=== PATIENT | male | born 1975 | race American Indian/Alaskan Native ===

== ENCOUNTER 2021-07-20 10:21 | Inpatient (IN) | payer SELFPAY ==
[2021-07-20] MEDS: ACETAMINOPHEN 325 MG TAB PO ONE ×2 (11:05→11:08)
--- NOTE | 2021-07-20 11:36 | Event Note ---
ED Screening Note ED Screening Note: Patient presents for dizziness, shortness of breath, cough that began 3 weeks ago Patient states he just took his second Covid vaccine a couple days ago He denies any recent travel or known sick contacts He endorses occasional smoking He denies any past medical history No allergies to medicines This initial assessment/diagnostic orders/clinical plan/treatment(s) is/are subject to change based on patients health status, clinical progression and re- assessment by fellow clinical providers in the ED. Further treatment and workup at subsequent clinical providers discretion. Patient/guardian urged not to elope from the ED as their condition may be serious if not clinically assessed and managed. Initial orders include: Labs, x-ray, EKG
[2021-07-20] MEDS ORDERED: cefTRIAXone/NS 1 GM/50 ML 1 GM/50 ML BAG IV ONE (12:03)
[2021-07-20] MEDS ORDERED: dexAMETHasone 20 MG/5 ML VIAL IV ONE (12:03)
[2021-07-20] MEDS ORDERED: AZITHROMYCIN/NS 500 MG/250 ML 500 MG/250 ML BAG IV ONE (12:03)
--- NOTE | 2021-07-20 12:20 | Emergency Department Report ---
ED Fever HPI - General Chief Complaint: Dyspnea/Respdistress Stated Complaint: DIZZINESS,LIGHT HEADED PUI?: Yes Time Seen by Provider: 07/20/21 11:36 Source: patient Exam Limitations: no limitations - History of Present Illness Initial Comments: Chief complaint:: Shortness of breath dizziness loss of taste smell" HPI: This is a healthy 45-year-old male without significant past medical history presents with 3 to 4 weeks of feeling dizzy, nausea, headaches, fevers or chills, loss of taste or smell. He had a chest ache and cough. Mostly dry cough. On Friday in spite symptoms he obtained his first dose of Covid vaccine on Friday. On he had negative Covid test. 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 denies: fever ENT: denies: throat pain Respiratory: cough, shortness of breath Cardiovascular: chest pain Gastrointestinal: nausea Neurological: headache ED Past Medical Hx - Past Medical History Previous Medical History?: No - Surgical History Past Surgical History?: No - Family History Family history: diabetes, hypertension - Social History Smoking Status: Never Smoker Substance Use Type: None ED Physical Exam - General Limitations: No Limitations General appearance: alert, in no apparent distress, other (Appears mildly ill speaking full sentences skin clammy) - Head Head exam: Present: atraumatic, normocephalic - Eye Eye exam: Present: normal appearance - ENT ENT exam: Present: mucous membranes moist - Neck Neck exam: Present: normal inspection, full ROM - Respiratory Respiratory exam: Present: decreased breath sounds. Absent: respiratory distress, wheezes, rales, rhonchi, chest wall tenderness, accessory muscle use, prolonged expiratory - Cardiovascular Cardiovascular Exam: Present: regular rate, normal rhythm. Absent: systolic murmur, diastolic murmur, rubs, gallop - GI/Abdominal GI/Abdominal exam: Present: soft, normal bowel sounds. Absent: distended, tenderness, guarding, rebound - Rectal Rectal exam: Present: deferred - Extremities Exam Extremities exam: Present: normal inspection - Neurological Exam Neurological exam: Present: alert, oriented X3 - Psychiatric Psychiatric exam: Present: normal affect, normal mood - Skin Skin exam: Present: warm, dry, intact, normal color. Absent: rash ED Course Vital Signs 07/20/21 07/20/21 10:57 13:47 Temperature 102.1 F H 99.1 F Pulse Rate 98 H Respiratory 17 Rate Blood Pressure 129/63 O2 Sat by Pulse 91 Oximetry ED Medical Decision Making - Lab Data Result diagrams: 07/20/21 12:02 07/20/21 12:02 - Radiology Data Radiology results: report reviewed Patient Name: LAURA POLANCO Gender: Male Date of : 1975 Referring Provider: CORNEL FRANKEL Organization: [facility] Accession Number: [id number] Requested Date: July 20, 2021 11:36 Report Status: Final Requested Procedure: 1 Procedure Description: XR chest routine 2V Modality: XR Findings Reporting MD: Rowdy Sepulveda Dictation Time: July 20, 2021 11:24 Kennel Keeper: Not available Digital Community Manager Date: . CHEST 2 VIEWS INDICATION / CLINICAL INFORMATION: SOB, fever, dizziness. COMPARISON: None available. FINDINGS: SUPPORT DEVICES: None. HEART / MEDIASTINUM: No significant abnormality. LUNGS / PLEURA: There are patchy bilateral pulmonary opacities. ADDITIONAL FINDINGS: No significant additional findings. IMPRESSION: 1. Patchy bilateral pulmonary opacities likely indicating multifocal pneumonia. Signer Name: Rowdy Sepulveda MD Signed: 07/20/2021 11:24 AM Workstation Name: [id number] - Medical Decision Making Acute respiratory failure hypoxia due to multifocal pneumonia high suspicion of COVID-19 infection CBC reveals typical lymphopenia with this viral syndrome, Covid markers elevated including ferritin LDH CRP D-dimer Treatment in emergency department included IV ceftriaxone, IV azithromycin, IV dexamethasone. Patient admitted to hospitalist service. He has normal oxygen saturation with nasal cannula. Critical care attestation.: If time is entered above; I have spent that time in minutes in the direct care of this critically ill patient, excluding procedure time. ED Disposition Clinical Impression: Acute respiratory failure with hypoxia, Suspected COVID-19 virus infection, Multifocal pneumonia Disposition: ADMITTED INPATIENT Is pt being admited?: Yes Does the pt Need Aspirin: No Condition: Fair Instructions: Bacterial Pneumonia (ED)
--- NOTE | 2021-07-20 12:28 | XRay Report ---
. CHEST 2 VIEWS INDICATION / CLINICAL INFORMATION: SOB, fever, dizziness. COMPARISON: None available. FINDINGS: SUPPORT DEVICES: None. HEART / MEDIASTINUM: No significant abnormality. LUNGS / PLEURA: There are patchy bilateral pulmonary opacities. ADDITIONAL FINDINGS: No significant additional findings. IMPRESSION: 1. Patchy bilateral pulmonary opacities likely indicating multifocal pneumonia. Signer Name: Rowdy Sepulveda MD Signed: 07/20/2021 12:24 PM Workstation Name: [id number]
[2021-07-20 13:04] LABS: Monocytes # (Auto) 0.5 K/mm3 (0.0-0.8); Monocytes % (Auto) 8.4 % (0.0-7.3)
[2021-07-20 13:11] LABS: Hematocrit 46.6 % (35.5-45.6); Hemoglobin 15.6 gm/dl (11.8-15.2); Mean Corpuscular Volume 82 fl (84-94); Red Blood Count 5.71 M/mm3 (3.65-5.03)
[2021-07-20 13:12] LABS: Basophils % (Auto) 0.2 % (0.0-1.8); Lymphocytes # (Auto) 0.6 K/mm3 (1.2-5.4); Lymphocytes % (Auto) 9.7 % (13.4-35.0); Mean Corpuscular HGB Conc 34 % (32-34); Platelet Count 224 K/mm3 (140-440); Red Cell Distribution Width 14.1 % (13.2-15.2)
[2021-07-20 13:14] LABS: Alanine Aminotransferase 68 units/L (7-56); Albumin 3.5 g/dL (3.9-5); BUN/Creatinine Ratio 17; Blood Urea Nitrogen 20 mg/dL (9-20); Calcium 9.2 mg/dL (8.4-10.2); Hemolysis Index 4
[2021-07-20 13:15] LABS: C-Reactive Protein 13.6 mg/dL (0.00-1.30)
[2021-07-20] MEDS ORDERED: oxyCODONE /ACETAMINOPHEN 5-325MG TAB PO PRN (14:46)
[2021-07-20] MEDS ORDERED: ALBUTEROL 2.5 MG/3 ML NEBU IH PRN (14:46)
[2021-07-20] MEDS ORDERED: HYDROmorphone 1 MG/1 ML INJ IV PRN (14:46)
[2021-07-20] MEDS ORDERED: ACETAMINOPHEN 325 MG TAB PO PRN (14:46)
[2021-07-20] MEDS ORDERED: ONDANSETRON 4 MG/2 ML INJ IV PRN (14:46)
--- NOTE | 2021-07-20 14:46 | History and Physical Report ---
History of Present Illness Chief complaint: I do not feel good History of present illness: 45 YO Male with Obesity presents to ED for evaluation. Patient reports "I do not feel good". Patient states that he has experienced headache, dry cough, generalized weakness, nausea, headache,fever to 102 F, loss of sense of smell, loss of sense of taste, over the past 2 weeks with worsening symptoms over the same timeframe. Patient states that he received his first dose of the coronavirus vaccine on Friday. Patient transported to [facility] via private vehicle for further care and evaluation of the aforementioned symptoms. The patient was found to have a pulse oximetry of 86% with exertion which is consistent with acute hypoxemic respiratory failure. Chest x-ray revealed bilateral pneumonia. Patient admitted to medical floor and initiated on pneumonia protocol as well as coronavirus protocol. Patient denies chest pain, palpitation, skin rash, unilateral leg swelling, calf pain, individual/family history of DVT/ PE/bleeding/blood clotting disorders, recent ill contacts. No prior admission for review. No medication listed at time of admission reconciliation. Past History Past Medical History: other (See HPI) Past Surgical History: No surgical history, Other (Reviewed) Social history: single. denies: smoking, alcohol abuse, prescription drug abuse Family history: diabetes, hypertension Medications and Allergies Allergies Allergy/AdvReac Type Severity Reaction Status Date / Time No Known Allergies Allergy Unverified 07/20/21 10:59 Review of Systems Constitutional: fever, fatigue, weakness, malaise Ears, nose, mouth and throat: other (Loss of sense of smell, loss of sense of taste), no ear pain, no ear discharge, no decreased hearing, no nose pain, no nasal congestion Cardiovascular: no chest pain, no orthopnea, no edema Respiratory: cough, shortness of breath, no excessive sputum Gastrointestinal: no abdominal pain, no nausea, no vomiting, no diarrhea, no hematemesis Genitourinary Male: no discharge, no urinary frequency, no urinary hesitancy Rectal: no pain, no incontinence, no bleeding Musculoskeletal: no neck stiffness, no neck pain, no arm numbness/tingling, no low back pain, no shooting leg pain Integumentary: no rash, no pruritis, no redness, no sores, no jaundice Neurological: no head injury, no paralysis, no parathesias, no seizures, no tremors, no ataxia Psychiatric: no anxiety, no change in sleep habits, no insomnia, no change in appetite, no change in libido, no suicidal ideation Endocrine: no cold intolerance, no heat intolerance, no excessive thirst, no polyuria, no flushing Hematologic/Lymphatic: no easy bruising, no easy bleeding, no lymphadenopathy Allergic/Immunologic: no allergic rhinitis, no anaphylaxis, no angioedema Exam - Constitutional Vitals: Temp Pulse Resp BP Pulse Ox 99.1 F 98 H 17 129/63 91 07/20/21 13:47 07/20/21 10:57 07/20/21 10:57 07/20/21 10:57 07/20/21 10:57 General appearance: Present: mild distress, obese - EENT Eyes: Present: PERRL ENT: hearing intact, clear oral mucosa - Neck Neck: Present: supple, normal ROM - Respiratory Respiratory effort: normal, labored, accessory muscle use Respiratory: bilateral: diminished, rhonchi - Cardiovascular Heart Sounds: Present: S1 & S2. Absent: rub, click - Extremities Extremities: pulses symmetrical, No edema Peripheral Pulses: within normal limits - Abdominal General gastrointestinal: Present: soft, non-tender, non-distended, normal bowel sounds Male genitourinary: Present: normal - Integumentary Integumentary: Present: clear, warm, dry - Musculoskeletal Musculoskeletal: gait normal, strength equal bilaterally - Psychiatric Psychiatric: appropriate mood/affect, intact judgment & insight - Neurologic Neurologic: CNII-XII intact, moves all extremities Results - Labs CBC & Chem 7: 07/20/21 12:02 07/20/21 12:02 Labs: Abnormal lab results 07/20/21 07/20/21 07/20/21 Range/Units 12:02 12:02 12:02 RBC 5.71 H (3.65-5.03) M/mm3 Hgb 15.6 H (11.8-15.2) gm/dl Hct 46.6 H (35.5-45.6) % MCV 82 L (84-94) fl MCH 27 L (28-32) pg Lymph % (Auto) 9.7 L (13.4-35.0) % [place] % (Auto) 8.4 H (0.0-7.3) % Lymph # (Auto) 0.6 L (1.2-5.4) K/mm3 Seg Neutrophils % 81.7 H (40.0-70.0) % D-Dimer 919.54 H (0-234) ng/mlDDU Sodium 130 L (137-145) mmol/L Chloride 92.6 L (98-107) mmol/L Glucose 111 H (75-100) mg/dL Ferritin (30.0-300.0) ng/mL AST 103 H (5-40) units/L ALT 68 H (7-56) units/L Lactate Dehydrogenase (91-180) units/L C-Reactive Protein (0.00-1.30) mg/dL Albumin 3.5 L (3.9-5) g/dL 07/20/21 07/20/21 Range/Units 12:19 12:19 RBC (3.65-5.03) M/mm3 Hgb (11.8-15.2) gm/dl Hct (35.5-45.6) % MCV (84-94) fl MCH (28-32) pg Lymph % (Auto) (13.4-35.0) % [place] % (Auto) (0.0-7.3) % Lymph # (Auto) (1.2-5.4) K/mm3 Seg Neutrophils % (40.0-70.0) % D-Dimer (0-234) ng/mlDDU Sodium (137-145) mmol/L Chloride (98-107) mmol/L Glucose (75-100) mg/dL Ferritin 762.9 H (30.0-300.0) ng/mL AST (5-40) units/L ALT (7-56) units/L Lactate Dehydrogenase 647 H (91-180) units/L C-Reactive Protein 13.60 H (0.00-1.30) mg/dL Albumin (3.9-5) g/dL Assessment and Plan - Patient Problems (1) Acute respiratory failure with hypoxia Current Visit: Yes Status: Acute Plan to address problem: Chest x-ray, supplemental oxygen, pulse oximetry, nebulizer therapy, pulmonary toilet. (2) Obesity hypoventilation syndrome Current Visit: Yes Status: Acute Plan to address problem: Balanced diet, increase physical activity at discharge, outpatient pulmonary follow-up for sleep study. (3) Multifocal pneumonia Current Visit: Yes Status: Acute Plan to address problem: Pneumonia protocol: Chest x-ray, CBC, CMP, supplemental oxygen, pulse oximetry, nebulizer therapy, IV antibiotic therapy, blood culture. (4) Suspected COVID-19 virus infection Current Visit: Yes Status: Acute Plan to address problem: Coronavirus protocol: Contact precautions, isolation precaution, IV antibiotic therapy, steroid therapy, vitamin C therapy, vitamin D therapy, zinc therapy, prophylactic anticoagulation, prone positioning while in bed (5) DVT prophylaxis Current Visit: Yes Status: Acute Plan to address problem: SCDs bilateral lower extremities while in bed, prophylactic anticoagulation
[2021-07-20] MEDS: AZITHROMYCIN/NS 500 MG/250 ML 500 MG/250 ML BAG IV SCH (15:11)
[2021-07-20] MEDS: HEPARIN 5,000 UNIT/1 ML VIAL SUB-Q SCH (22:10)
[2021-07-20] MEDS: methylPREDNISolone Sod Succinate 40 MG/1 ML INJ IV SCH (23:06)
[2021-07-20] MEDS: ASCORBIC ACID 500 MG TAB PO SCH (23:06)
[2021-07-20] MEDS: ZINC SULFATE 220 MG CAP PO SCH (23:06)
[2021-07-21] MEDS ORDERED: cefTRIAXone/NS 2 GM/100 ML 2 GM/100 ML BAG IV SCH (02:00)
[2021-07-21 05:16] LABS: Hematocrit 44.4 % (35.5-45.6); Hemoglobin 14.9 gm/dl (11.8-15.2); Lymphocytes # (Auto) 0.5 K/mm3 (1.2-5.4); Lymphocytes % (Auto) 10.3 % (13.4-35.0); Mean Corpuscular HGB Conc 34 % (32-34); Mean Corpuscular Volume 82 fl (84-94); Monocytes # (Auto) 0.3 K/mm3 (0.0-0.8); Monocytes % (Auto) 6.2 % (0.0-7.3); Platelet Count 240 K/mm3 (140-440); Red Blood Count 5.41 M/mm3 (3.65-5.03); Red Cell Distribution Width 14.2 % (13.2-15.2)
[2021-07-21 05:27] LABS: Alanine Aminotransferase 99 units/L (7-56); Albumin 3.1 g/dL (3.9-5); BUN/Creatinine Ratio 19; Blood Urea Nitrogen 21 mg/dL (9-20); Calcium 8.5 mg/dL (8.4-10.2); Hemolysis Index 1
[2021-07-21] MEDS: methylPREDNISolone Sod Succinate 40 MG/1 ML INJ IV SCH ×3 (06:34→21:54)
[2021-07-21] MEDS: HEPARIN 5,000 UNIT/1 ML VIAL SUB-Q SCH ×2 (10:23→21:53)
[2021-07-21] MEDS: ZINC SULFATE 220 MG CAP PO SCH ×2 (10:24→21:54)
[2021-07-21] MEDS: CHOLECALCIFEROL (VIT D3) 1000 UNIT (25 mcg) TAB PO SCH (10:24)
[2021-07-21] MEDS: ASCORBIC ACID 500 MG TAB PO SCH ×2 (10:24→21:54)
--- NOTE | 2021-07-21 13:16 | Progress Note ---
Assessment and Plan Assessment and plan: (1) Acute respiratory failure with hypoxia Current Visit: Yes Status: Acute Plan to address problem: Chest x-ray, supplemental oxygen, pulse oximetry, nebulizer therapy, pulmonary toilet. (2) Obesity hypoventilation syndrome Current Visit: Yes Status: Acute Plan to address problem: Balanced diet, increase physical activity at discharge, outpatient pulmonary follow-up for sleep study. (3) Multifocal pneumonia Current Visit: Yes Status: Acute Plan to address problem: Pneumonia protocol: Chest x-ray, CBC, CMP, supplemental oxygen, pulse oximetry, nebulizer therapy, IV antibiotic therapy, blood culture. (4) Suspected COVID-19 virus infection Current Visit: Yes Status: Acute Plan to address problem: Coronavirus protocol: Contact precautions, isolation precaution, IV antibiotic therapy, steroid therapy, vitamin C therapy, vitamin D therapy, zinc therapy, prophylactic anticoagulation, prone positioning while in bed (5) DVT prophylaxis Current Visit: Yes Status: Acute Plan to address problem: SCDs bilateral lower extremities while in bed, prophylactic anticoagulation 07/21/21 Patient is 45 yo with cough, shortness of breath. He has bilateral pneumonia, acute resp failure. PUI to r/o Covid. On Rocephin, Azithromycin,solu-medrol History Interval history: Cough Shortness of breath Fever Hospitalist Physical - Physical exam Narrative exam: Gen:Not in acute distress, lying in bed, obese HEENT:Normocephalic, atraumatic Neck:supple, no JVD Lungs: Bilateral crackles, no wheeze Heart:S1 and S2 reg, no murmurs, rubs or gallop Abd:Soft, non tender, non distended, normal bowel sounds Ext:No edema. no clubbing, no cyanosis Neuro:Awake, alert, oriented X 3, moves all extremities - Constitutional Vitals: Temp Pulse Resp BP Pulse Ox 97.9 F 77 18 120/76 94 07/21/21 07:47 07/21/21 10:01 07/21/21 11:24 07/21/21 10:01 07/21/21 10:01 General appearance: Present: mild distress, obese Results - Labs CBC & Chem 7: 07/21/21 03:52 07/21/21 03:52 Labs: Laboratory Last Values WBC 5.0 K/mm3 (4.5-11.0) 07/21/21 03:52 RBC 5.41 M/mm3 (3.65-5.03) H 07/21/21 03:52 Hgb 14.9 gm/dl (11.8-15.2) 07/21/21 03:52 Hct 44.4 % (35.5-45.6) 07/21/21 03:52 MCV 82 fl (84-94) L 07/21/21 03:52 MCH 28 pg (28-32) 07/21/21 03:52 MCHC 34 % (32-34) 07/21/21 03:52 RDW 14.2 % (13.2-15.2) 07/21/21 03:52 Plt Count 240 K/mm3 (140-440) 07/21/21 03:52 Lymph % (Auto) 10.3 % (13.4-35.0) L 07/21/21 03:52 [place] % (Auto) 6.2 % (0.0-7.3) 07/21/21 03:52 Eos % (Auto) 0.0 % (0.0-4.3) 07/21/21 03:52 Baso % (Auto) Transportation Agent 07/21/21 03:52 Lymph # (Auto) 0.5 K/mm3 (1.2-5.4) L 07/21/21 03:52 [place] # (Auto) 0.3 K/mm3 (0.0-0.8) 07/21/21 03:52 Eos # (Auto) 0.0 K/mm3 (0.0-0.4) 07/21/21 03:52 Baso # (Auto) 0.0 K/mm3 (0.0-0.1) 07/21/21 03:52 Seg Neutrophils % 83.2 % (40.0-70.0) H 07/21/21 03:52 Seg Neutrophils # 4.2 K/mm3 (1.8-7.7) 07/21/21 03:52 D-Dimer 919.54 ng/mlDDU (0-234) H 07/20/21 12:02 Sodium 131 mmol/L (137-145) L 07/21/21 03:52 Potassium 4.6 mmol/L (3.6-5.0) 07/21/21 03:52 Chloride 92.7 mmol/L (98-107) L 07/21/21 03:52 Carbon Dioxide 26 mmol/L (22-30) 07/21/21 03:52 Anion Gap 17 mmol/L 07/21/21 03:52 BUN 21 mg/dL (9-20) H 07/21/21 03:52 Creatinine 1.1 mg/dL (0.8-1.3) 07/21/21 03:52 Estimated GFR > 60 ml/min 07/21/21 03:52 BUN/Creatinine Ratio 19 % 07/21/21 03:52 Glucose 142 mg/dL (75-100) H 07/21/21 03:52 Calcium 8.5 mg/dL (8.4-10.2) 07/21/21 03:52 Ferritin 762.9 ng/mL (30.0-300.0) H 07/20/21 12:19 Total Bilirubin 0.40 mg/dL (0.1-1.2) 07/21/21 03:52 AST 130 units/L (5-40) H 07/21/21 03:52 ALT 99 units/L (7-56) H 07/21/21 03:52 Alkaline Phosphatase 61 units/L (35-129) 07/21/21 03:52 Lactate Dehydrogenase 647 units/L (91-180) H 07/20/21 12:19 C-Reactive Protein 13.60 mg/dL (0.00-1.30) H 07/20/21 12:19 Total Protein 7.2 g/dL (6.3-8.2) 07/21/21 03:52 Albumin 3.1 g/dL (3.9-5) L 07/21/21 03:52 Albumin/Globulin Ratio 0.8 % 07/21/21 03:52 Procalcitonin 0.23 ng/mL (<0.15) 07/20/21 12:19 Active Medications - Current Medications Current Medications: Generic Name Dose Route Start Last Admin Trade Name Freq PRN Reason Stop Dose Admin Acetaminophen 650 mg 07/20/21 14:46 Acetaminophen 325 Mg Tab PO Q4H PRN Pain MILD(1-3)/Fever >100.5/LOPEZ Albuterol 2.5 mg 07/20/21 14:46 Albuterol 2.5 Mg/3 Ml Nebu IH Q4HRT PRN Shortness Of Breath Ascorbic Acid 500 mg 07/20/21 22:00 07/21/21 10:24 Ascorbic Acid 500 Mg Tab PO 500 mg BID TASHIA Administration Cholecalciferol 1,000 unit 07/21/21 10:00 07/21/21 10:24 Cholecalciferol (Vit D3) 1000 Unit (25 Mcg) Tab PO 1,000 unit QDAY TASHIA Administration Heparin Sodium (Porcine) 5,000 unit 07/20/21 22:00 07/21/21 10:23 Heparin 5,000 Unit/1 Ml Vial SUB-Q 5,000 unit Q12HR TASHIA Administration Hydromorphone HCl 0.5 mg 07/20/21 14:46 Hydromorphone 1 Mg/1 Ml Inj IV Q12H PRN Pain , Severe (7-10) Azithromycin 500 mg in 250 mls @ 250 mls/hr 07/20/21 15:00 07/20/21 15:11 Zithromax/Ns IV 07/24/21 15:59 Not Given Q24H [facility] Protocol Ceftriaxone Sodium 2 gm in 100 mls @ 200 mls/hr 07/21/21 14:00 Rocephin/Ns 2 Gm/100 Ml IV 07/25/21 14:29 Q24H TASHIA Protocol Methylprednisolone Sodium Succinate 40 mg 07/20/21 22:00 07/21/21 06:34 Methylprednisolone Sod Succinate 40 Mg/1 Ml Inj IV 40 mg Q8HR TASHIA Administration Ondansetron HCl 4 mg 07/20/21 14:46 Ondansetron 4 Mg/2 Ml Inj IV Q8H PRN Nausea And Vomiting Oxycodone/Acetaminophen 1 tab 07/20/21 14:46 07/21/21 10:24 Oxycodone /Acetaminophen 5-325mg Tab PO 1 tab Q12H PRN Administration Pain, Moderate (4-6) Sodium Chloride 10 ml 07/20/21 22:00 07/21/21 10:24 Sodium Chloride 0.9% 10 Ml Flush Syringe IV 10 ml BID TASHIA Administration Sodium Chloride 10 ml 07/20/21 14:46 Sodium Chloride 0.9% 10 Ml Flush Syringe IV PRN PRN LINE FLUSH Zinc Sulfate 220 mg 07/20/21 22:00 07/21/21 10:24 Zinc Sulfate 220 Mg Cap PO 220 mg BID TASHIA Administration
[2021-07-21] MEDS: cefTRIAXone/NS 2 GM/100 ML 2 GM/100 ML BAG IV SCH (13:56)
[2021-07-21] MEDS: AZITHROMYCIN/NS 500 MG/250 ML 500 MG/250 ML BAG IV SCH (15:00)
[2021-07-22] MEDS: methylPREDNISolone Sod Succinate 40 MG/1 ML INJ IV SCH ×3 (05:29→22:00)
[2021-07-22 06:38] LABS: BUN/Creatinine Ratio 26; Blood Urea Nitrogen 23 mg/dL (9-20); Calcium 9.2 mg/dL (8.4-10.2); Hemolysis Index 2
[2021-07-22 06:40] LABS: Hematocrit 43.9 % (35.5-45.6); Hemoglobin 14.8 gm/dl (11.8-15.2); Mean Corpuscular HGB Conc 34 % (32-34); Mean Corpuscular Volume 81 fl (84-94); Platelet Count 300 K/mm3 (140-440); Red Blood Count 5.41 M/mm3 (3.65-5.03); Red Cell Distribution Width 14.6 % (13.2-15.2)
[2021-07-22] MEDS: ZINC SULFATE 220 MG CAP PO SCH ×2 (09:38→22:00)
[2021-07-22] MEDS: HEPARIN 5,000 UNIT/1 ML VIAL SUB-Q SCH ×2 (09:38→22:00)
[2021-07-22] MEDS: CHOLECALCIFEROL (VIT D3) 1000 UNIT (25 mcg) TAB PO SCH (09:38)
[2021-07-22] MEDS: ASPIRIN 325 MG TAB PO SCH (09:39)
[2021-07-22] MEDS: ASCORBIC ACID 500 MG TAB PO SCH ×2 (09:39→22:00)
--- NOTE | 2021-07-22 09:57 | Progress Note ---
Assessment and Plan Assessment and plan: (1) Acute respiratory failure with hypoxia Current Visit: Yes Status: Acute Plan to address problem: Chest x-ray, supplemental oxygen, pulse oximetry, nebulizer therapy, pulmonary toilet. (2) Obesity hypoventilation syndrome Current Visit: Yes Status: Acute Plan to address problem: Balanced diet, increase physical activity at discharge, outpatient pulmonary follow-up for sleep study. (3) Multifocal pneumonia Current Visit: Yes Status: Acute Plan to address problem: Pneumonia protocol: Chest x-ray, CBC, CMP, supplemental oxygen, pulse oximetry, nebulizer therapy, IV antibiotic therapy, blood culture. (4) COVID-19 virus infection Current Visit: Yes Status: Acute Plan to address problem: Coronavirus protocol: Contact precautions, isolation precaution, IV antibiotic therapy, steroid therapy, vitamin C therapy, vitamin D therapy, zinc therapy, prophylactic anticoagulation, prone positioning while in bed (5) DVT prophylaxis Current Visit: Yes Status: Acute Plan to address problem: SCDs bilateral lower extremities while in bed, prophylactic anticoagulation 07/21/21 Patient is 45 yo with cough, shortness of breath. He has bilateral pneumonia, acute resp failure. PUI to r/o Covid. On Rocephin, Azithromycin,solu-medrol 07/22/21 Patient with Covid-19 pneumonia with acute resp failure. Covid-19 positive. On Oxygen at 3 l/min Hyponatremia Elevated d-dimer. Will do CT chest to r/o pulm embolism History Interval history: Cough Shortness of breath Fever Hospitalist Physical - Physical exam Narrative exam: Gen:Not in acute distress, lying in bed, HEENT:Normocephalic, atraumatic Neck:supple, no JVD Lungs: Bilateral crackles, no wheeze Heart:S1 and S2 reg, no murmurs, rubs or gallop Abd:Soft, non tender, non distended, normal bowel sounds Ext:No edema. no clubbing, no cyanosis Neuro:Awake, alert, oriented X 3, moves all extremities - Constitutional Vitals: Temp Pulse Resp BP Pulse Ox 98.2 F 68 18 111/71 93 07/22/21 06:05 07/22/21 06:05 07/22/21 06:05 07/22/21 06:05 07/22/21 09:34 General appearance: Present: obese Results - Labs CBC & Chem 7: 07/22/21 05:48 07/22/21 05:48 Labs: Laboratory Last Values WBC 13.4 K/mm3 (4.5-11.0) H 07/22/21 05:48 RBC 5.41 M/mm3 (3.65-5.03) H 07/22/21 05:48 Hgb 14.8 gm/dl (11.8-15.2) 07/22/21 05:48 Hct 43.9 % (35.5-45.6) 07/22/21 05:48 MCV 81 fl (84-94) L 07/22/21 05:48 MCH 27 pg (28-32) L 07/22/21 05:48 MCHC 34 % (32-34) 07/22/21 05:48 RDW 14.6 % (13.2-15.2) 07/22/21 05:48 Plt Count 300 K/mm3 (140-440) 07/22/21 05:48 Lymph % (Auto) 10.3 % (13.4-35.0) L 07/21/21 03:52 [place] % (Auto) 6.2 % (0.0-7.3) 07/21/21 03:52 Eos % (Auto) 0.0 % (0.0-4.3) 07/21/21 03:52 Baso % (Auto) Prosthetic Lab Technician 07/21/21 03:52 Lymph # (Auto) 0.5 K/mm3 (1.2-5.4) L 07/21/21 03:52 [place] # (Auto) 0.3 K/mm3 (0.0-0.8) 07/21/21 03:52 Eos # (Auto) 0.0 K/mm3 (0.0-0.4) 07/21/21 03:52 Baso # (Auto) 0.0 K/mm3 (0.0-0.1) 07/21/21 03:52 Seg Neutrophils % 83.2 % (40.0-70.0) H 07/21/21 03:52 Seg Neutrophils # 4.2 K/mm3 (1.8-7.7) 07/21/21 03:52 D-Dimer 919.54 ng/mlDDU (0-234) H 07/20/21 12:02 Sodium 133 mmol/L (137-145) L 07/22/21 05:48 Potassium 4.1 mmol/L (3.6-5.0) 07/22/21 05:48 Chloride 96.2 mmol/L (98-107) L 07/22/21 05:48 Carbon Dioxide 28 mmol/L (22-30) 07/22/21 05:48 Anion Gap 13 mmol/L 07/22/21 05:48 BUN 23 mg/dL (9-20) H 07/22/21 05:48 Creatinine 0.9 mg/dL (0.8-1.3) 07/22/21 05:48 Estimated GFR > 60 ml/min 07/22/21 05:48 BUN/Creatinine Ratio 26 % 07/22/21 05:48 Glucose 130 mg/dL (75-100) H 07/22/21 05:48 Calcium 9.2 mg/dL (8.4-10.2) 07/22/21 05:48 Ferritin 762.9 ng/mL (30.0-300.0) H 07/20/21 12:19 Total Bilirubin 0.40 mg/dL (0.1-1.2) 07/21/21 03:52 AST 130 units/L (5-40) H 07/21/21 03:52 ALT 99 units/L (7-56) H 07/21/21 03:52 Alkaline Phosphatase 61 units/L (35-129) 07/21/21 03:52 Lactate Dehydrogenase 647 units/L (91-180) H 07/20/21 12:19 C-Reactive Protein 13.60 mg/dL (0.00-1.30) H 07/20/21 12:19 Total Protein 7.2 g/dL (6.3-8.2) 07/21/21 03:52 Albumin 3.1 g/dL (3.9-5) L 07/21/21 03:52 Albumin/Globulin Ratio 0.8 % 07/21/21 03:52 Procalcitonin 0.23 ng/mL (<0.15) 07/20/21 12:19 Coronavirus (PCR) Positive (Negative) A 07/21/21 09:40 Chaudhry/IV: Voiding Method Toilet Active Medications - Current Medications Current Medications: Generic Name Dose Route Start Last Admin Trade Name Freq PRN Reason Stop Dose Admin Acetaminophen 650 mg 07/20/21 14:46 Acetaminophen 325 Mg Tab PO Q4H PRN Pain MILD(1-3)/Fever >100.5/LOPEZ Albuterol 2.5 mg 07/20/21 14:46 Albuterol 2.5 Mg/3 Ml Nebu IH Q4HRT PRN Shortness Of Breath Ascorbic Acid 500 mg 07/20/21 22:00 07/22/21 09:39 Ascorbic Acid 500 Mg Tab PO 500 mg BID TASHIA Administration Aspirin 325 mg 07/22/21 10:00 07/22/21 09:39 Aspirin 325 Mg Tab PO 325 mg QDAY TASHIA Administration Cholecalciferol 1,000 unit 07/21/21 10:00 07/22/21 09:38 Cholecalciferol (Vit D3) 1000 Unit (25 Mcg) Tab PO 1,000 unit QDAY TASHIA Administration Heparin Sodium (Porcine) 5,000 unit 07/20/21 22:00 07/22/21 09:38 Heparin 5,000 Unit/1 Ml Vial SUB-Q 5,000 unit Q12HR TASHIA Administration Hydromorphone HCl 0.5 mg 07/20/21 14:46 Hydromorphone 1 Mg/1 Ml Inj IV Q12H PRN Pain , Severe (7-10) Azithromycin 500 mg in 250 mls @ 250 mls/hr 07/20/21 15:00 07/21/21 15:00 Zithromax/Ns IV 07/24/21 15:59 Not Given Q24H TASHIA Protocol Ceftriaxone Sodium 2 gm in 100 mls @ 200 mls/hr 07/21/21 14:00 07/21/21 13:56 Rocephin/Ns 2 Gm/100 Ml IV 07/25/21 14:29 200 mls/hr Q24H TASHIA Administration Protocol Methylprednisolone Sodium Succinate 40 mg 07/20/21 22:00 07/22/21 05:29 Methylprednisolone Sod Succinate 40 Mg/1 Ml Inj IV 40 mg Q8HR TASHIA Administration Ondansetron HCl 4 mg 07/20/21 14:46 Ondansetron 4 Mg/2 Ml Inj IV Q8H PRN Nausea And Vomiting Oxycodone/Acetaminophen 1 tab 07/20/21 14:46 07/21/21 10:24 Oxycodone /Acetaminophen 5-325mg Tab PO 1 tab Q12H PRN Administration Pain, Moderate (4-6) Sodium Chloride 10 ml 07/20/21 22:00 07/22/21 09:39 Sodium Chloride 0.9% 10 Ml Flush Syringe IV 10 ml BID TASHIA Administration Sodium Chloride 10 ml 07/20/21 14:46 Sodium Chloride 0.9% 10 Ml Flush Syringe IV PRN PRN LINE FLUSH Zinc Sulfate 220 mg 07/20/21 22:00 07/22/21 09:38 Zinc Sulfate 220 Mg Cap PO 220 mg BID TASHIA Administration
[2021-07-22] MEDS: cefTRIAXone/NS 2 GM/100 ML 2 GM/100 ML BAG IV SCH (14:04)
[2021-07-22] MEDS: AZITHROMYCIN/NS 500 MG/250 ML 500 MG/250 ML BAG IV SCH (14:04)
--- NOTE | 2021-07-22 18:40 | Consultation ---
History of Present Illness - Reason for Consult Consult date: 07/22/21 COVID - History of Present Illness 45-year-old male with history of morbid obesity: Admitted on 07/20/2021 secondary to 2-week history of generalized malaise, headaches, cough, nausea, fever, progressive shortness of breath. Patient received his first dose of Covid vaccine on 07/17/2021. On arrival, O2 sat down to 86%. Chest x-ray showed bilateral pneumonia. Review of Systems: reviewed ED and H&P notes. Review of system deferred to minimize COVID-19 transmission. Past History Past Medical History: other (See HPI) Past Surgical History: No surgical history, Other (Reviewed) Social history: single. denies: smoking, alcohol abuse, prescription drug abuse Family history: diabetes, hypertension Medications and Allergies Allergies Allergy/AdvReac Type Severity Reaction Status Date / Time No Known Allergies Allergy Verified 07/22/21 04:32 Home Medications Medication Instructions Recorded Confirmed Last Taken Type No Known Home Medications [No 07/21/21 07/21/21 Unknown History Reported Home Medications] Active Meds: Active Medications Acetaminophen (Acetaminophen 325 Mg Tab) 650 mg PO Q4H PRN PRN Reason: Pain MILD(1-3)/Fever >100.5/LOPEZ Albuterol (Albuterol 2.5 Mg/3 Ml Nebu) 2.5 mg IH Q4HRT PRN PRN Reason: Shortness Of Breath Ascorbic Acid (Ascorbic Acid 500 Mg Tab) 500 mg PO BID [facility] Last Admin: 07/22/21 09:39 Dose: 500 mg Documented by: Aspirin (Aspirin 325 Mg Tab) 325 mg PO QDAY [facility] Last Admin: 07/22/21 09:39 Dose: 325 mg Documented by: Cholecalciferol (Cholecalciferol (Vit D3) 1000 Unit (25 Mcg) Tab) 1,000 unit PO QDAY [facility] Last Admin: 07/22/21 09:38 Dose: 1,000 unit Documented by: Heparin Sodium (Porcine) (Heparin 5,000 Unit/1 Ml Vial) 5,000 unit SUB-Q Q12HR [facility] Last Admin: 07/22/21 09:38 Dose: 5,000 unit Documented by: Hydromorphone HCl (Hydromorphone 1 Mg/1 Ml Inj) 0.5 mg IV Q12H PRN PRN Reason: Pain , Severe (7-10) Azithromycin (Zithromax/Ns) 500 mg in 250 mls @ 250 mls/hr IV Q24H [facility]; Protocol Stop: 07/24/21 15:59 Last Admin: 07/22/21 14:04 Dose: 250 mls/hr Documented by: Ceftriaxone Sodium (Rocephin/Ns 2 Gm/100 Ml) 2 gm in 100 mls @ 200 mls/hr IV Q24H [facility]; Protocol Stop: 07/25/21 14:29 Last Admin: 07/22/21 14:04 Dose: 200 mls/hr Documented by: Methylprednisolone Sodium Succinate (Methylprednisolone Sod Succinate 40 Mg/1 Ml Inj) 40 mg IV Q8HR [facility] Last Admin: 07/22/21 14:05 Dose: 40 mg Documented by: Ondansetron HCl (Ondansetron 4 Mg/2 Ml Inj) 4 mg IV Q8H PRN PRN Reason: Nausea And Vomiting Oxycodone/Acetaminophen (Oxycodone /Acetaminophen 5-325mg Tab) 1 tab PO Q12H PRN PRN Reason: Pain, Moderate (4-6) Last Admin: 07/21/21 10:24 Dose: 1 tab Documented by: Sodium Chloride (Sodium Chloride 0.9% 10 Ml Flush Syringe) 10 ml IV BID [facility] Last Admin: 07/22/21 09:39 Dose: 10 ml Documented by: Sodium Chloride (Sodium Chloride 0.9% 10 Ml Flush Syringe) 10 ml IV PRN PRN PRN Reason: LINE FLUSH Zinc Sulfate (Zinc Sulfate 220 Mg Cap) 220 mg PO BID [facility] Last Admin: 07/22/21 09:38 Dose: 220 mg Documented by: Physical Examination - Physical Exam Narrative exam: Physical exam deferred to minimize COVID-19 transmission during pandemic. ER and internal medicine physical examination notes reviewed. - Constitutional Vitals: Vital Signs Temp Pulse Resp BP Pulse Ox 98.2 F 66 15 142/96 98 07/22/21 06:05 07/22/21 15:11 07/22/21 12:31 07/22/21 12:31 07/22/21 15:11 Temperature -Last 24 Hours Temperature 98.2 F Temperature 98.2 F Results - Labs CBC & Chem 7: 07/22/21 05:48 07/22/21 05:48 Labs: Abnormal lab results 07/22/21 07/22/21 Range/Units 05:48 05:48 WBC 13.4 H (4.5-11.0) K/mm3 RBC 5.41 H (3.65-5.03) M/mm3 MCV 81 L (84-94) fl MCH 27 L (28-32) pg Sodium 133 L (137-145) mmol/L Chloride 96.2 L (98-107) mmol/L BUN 23 H (9-20) mg/dL Glucose 130 H (75-100) mg/dL Assessment and Plan Cultures: SARS CoV2 PCR positive Assessment: 45-year-old male with history of morbid obesity: Admitted on 07/20/2021 secondary to 2-week history of generalized malaise, headaches, cough, nausea, fever, progressive shortness of breath: #Sepsis: With fever, hypoxia, likely secondary to COVID-19. #Severe COVID pneumonia: CXR with bilateral pneumonia. Infllammatory markers elevated. CRP 13.6. Procalcitonin 0.2. D-dimer 919. #Acute hypoxemic respiratory failure: Currently on 2 L. #Elevated LFTs: from COVID, AST 103/ALT 68. #MICHI: from COVID Recommendations: -Continue steroids IV/PO daily for 10 days -No indication for remdesivir, symptoms for over 14 days -Monitor inflammatory markers - ferritin, Ddimer, CRP, LDH -Monitor liver function test on Remdesivir -Continue anticoagulation per System Protocol -Prone positioning as possible -Continue ceftriaxone for 5 days, azithromycin for 3 days All laboratory, cultures and imaging were reviewed. Will follow Anushka Gilliland MD Infectious Diseases Statistical Programmer [facility] ([facility]) M [phone] O [phone]
[2021-07-23] MEDS: methylPREDNISolone Sod Succinate 40 MG/1 ML INJ IV SCH ×3 (05:47→21:35)
[2021-07-23 06:48] LABS: Hematocrit 44.6 % (35.5-45.6); Hemoglobin 14.7 gm/dl (11.8-15.2); Mean Corpuscular HGB Conc 33 % (32-34); Mean Corpuscular Volume 82 fl (84-94); Platelet Count 376 K/mm3 (140-440); Red Blood Count 5.46 M/mm3 (3.65-5.03); Red Cell Distribution Width 14.5 % (13.2-15.2)
[2021-07-23 07:10] LABS: BUN/Creatinine Ratio 26; Blood Urea Nitrogen 21 mg/dL (9-20); Calcium 9.3 mg/dL (8.4-10.2); Hemolysis Index 3
--- NOTE | 2021-07-23 09:48 | Cat Scan Report ---
CTA CHEST WITH CONTRAST INDICATION / CLINICAL INFORMATION: Elevated d-dimer and shortness of breath. TECHNIQUE: Axial CT images were obtained through the chest after injection of 100 cc Omnipaque 350 IV contrast. 3 plane MIP and/or 3D reconstructions were produced. All CT scans at this location are per formed using CT dose reduction for ALARA by means of automated exposure control. COMPARISON: None available. FINDINGS: PULMONARY ARTERIES: Adequate opacification of the pulmonary arterial system bilaterally without intra luminal filling defect to suggest acute PTE. THORACIC AORTA: No significant abnormality. HEART: Mild cardiomegaly. No pericardial effusion. CORONARY ARTERY CALCIFICATION: None. MEDIASTINUM / SUJATA: No significant abnormality. PLEURA: No pleural effusion. No pneumothorax. LUNGS: Moderately severe patchy parenchymal opacities throughout both lungs, all lobes. Disease is pr edominantly groundglass in appearance, peripheral and lower lung zone predominant. There are mild are as of developing consolidation, predominantly in the lower lobes. No pleural effusion or adenopathy. Old calcified granulomatous disease in the right hemithorax. ADDITIONAL FINDINGS: None. UPPER ABDOMEN: No acute findings. SKELETAL STRUCTURES: No significant osseous abnormality. IMPRESSION: 1. No CT evidence for pulmonary embolism. 2. Moderately severe patchy parenchymal opacities throughout both lungs are probably related to atypi ludmila pneumonia, especially viral causes. Signer Name: James Mejia MD Signed: 07/23/2021 9:44 AM Workstation Name: [id number]
[2021-07-23] MEDS: ZINC SULFATE 220 MG CAP PO SCH ×2 (10:40→21:35)
[2021-07-23] MEDS: CHOLECALCIFEROL (VIT D3) 1000 UNIT (25 mcg) TAB PO SCH (10:40)
[2021-07-23] MEDS: ASPIRIN 325 MG TAB PO SCH (10:40)
[2021-07-23] MEDS: HEPARIN 5,000 UNIT/1 ML VIAL SUB-Q SCH ×2 (10:40→21:35)
[2021-07-23] MEDS: ASCORBIC ACID 500 MG TAB PO SCH ×2 (10:40→21:35)
--- NOTE | 2021-07-23 13:07 | Progress Note ---
Assessment and Plan Assessment and plan: (1) Acute respiratory failure with hypoxia Current Visit: Yes Status: Acute Plan to address problem: Chest x-ray, supplemental oxygen, pulse oximetry, nebulizer therapy, pulmonary toilet. (2) Obesity hypoventilation syndrome Current Visit: Yes Status: Acute Plan to address problem: Balanced diet, increase physical activity at discharge, outpatient pulmonary follow-up for sleep study. (3) Multifocal pneumonia Current Visit: Yes Status: Acute Plan to address problem: Pneumonia protocol: Chest x-ray, CBC, CMP, supplemental oxygen, pulse oximetry, nebulizer therapy, IV antibiotic therapy, blood culture. (4) COVID-19 virus infection Current Visit: Yes Status: Acute Plan to address problem: Coronavirus protocol: Contact precautions, isolation precaution, IV antibiotic therapy, steroid therapy, vitamin C therapy, vitamin D therapy, zinc therapy, prophylactic anticoagulation, prone positioning while in bed (5) DVT prophylaxis Current Visit: Yes Status: Acute Plan to address problem: SCDs bilateral lower extremities while in bed, prophylactic anticoagulation 07/21/21 Patient is 45 yo with cough, shortness of breath. He has bilateral pneumonia, acute resp failure. PUI to r/o Covid. On Rocephin, Azithromycin,solu-medrol 07/22/21 Patient with Covid-19 pneumonia with acute resp failure. Covid-19 positive. On Oxygen at 3 l/min Hyponatremia Elevated d-dimer. Will do CT chest to r/o pulm embolism 07/23/21 Patient with Covid-19 pneumonia with acute resp failure. Covid-19 positive. On Oxygen at 3 l/min Hyponatremia Elevated d-dimer. CT chest negative Will do ambulatory pulse ox in am to determine discharge Oxygen requirement History Interval history: Cough Shortness of breath Fever Hospitalist Physical - Physical exam Narrative exam: Gen:Not in acute distress, lying in bed, HEENT:Normocephalic, atraumatic Neck:supple, no JVD Lungs: Bilateral crackles, no wheeze Heart:S1 and S2 reg, no murmurs, rubs or gallop Abd:Soft, non tender, non distended, normal bowel sounds Ext:No edema. no clubbing, no cyanosis Neuro:Awake, alert, oriented X 3, moves all extremities - Constitutional Vitals: Temp Pulse Resp BP Pulse Ox 97.6 F 65 18 114/73 95 07/23/21 11:09 07/23/21 11:09 07/23/21 11:09 07/23/21 11:09 07/23/21 11:09 General appearance: Present: obese Results - Labs CBC & Chem 7: 07/24/21 05:44 07/24/21 05:44 Labs: Laboratory Last Values WBC 12.3 K/mm3 (4.5-11.0) H 07/23/21 05:45 RBC 5.46 M/mm3 (3.65-5.03) H 07/23/21 05:45 Hgb 14.7 gm/dl (11.8-15.2) 07/23/21 05:45 Hct 44.6 % (35.5-45.6) 07/23/21 05:45 MCV 82 fl (84-94) L 07/23/21 05:45 MCH 27 pg (28-32) L 07/23/21 05:45 MCHC 33 % (32-34) 07/23/21 05:45 RDW 14.5 % (13.2-15.2) 07/23/21 05:45 Plt Count 376 K/mm3 (140-440) 07/23/21 05:45 Lymph % (Auto) 10.3 % (13.4-35.0) L 07/21/21 03:52 [place] % (Auto) 6.2 % (0.0-7.3) 07/21/21 03:52 Eos % (Auto) 0.0 % (0.0-4.3) 07/21/21 03:52 Baso % (Auto) Cell Phone Repair Technician 07/21/21 03:52 Lymph # (Auto) 0.5 K/mm3 (1.2-5.4) L 07/21/21 03:52 [place] # (Auto) 0.3 K/mm3 (0.0-0.8) 07/21/21 03:52 Eos # (Auto) 0.0 K/mm3 (0.0-0.4) 07/21/21 03:52 Baso # (Auto) 0.0 K/mm3 (0.0-0.1) 07/21/21 03:52 Seg Neutrophils % 83.2 % (40.0-70.0) H 07/21/21 03:52 Seg Neutrophils # 4.2 K/mm3 (1.8-7.7) 07/21/21 03:52 D-Dimer 919.54 ng/mlDDU (0-234) H 07/20/21 12:02 Sodium 138 mmol/L (137-145) 07/23/21 05:45 Potassium 4.3 mmol/L (3.6-5.0) 07/23/21 05:45 Chloride 99.4 mmol/L (98-107) 07/23/21 05:45 Carbon Dioxide 29 mmol/L (22-30) 07/23/21 05:45 Anion Gap 14 mmol/L 07/23/21 05:45 BUN 21 mg/dL (9-20) H 07/23/21 05:45 Creatinine 0.8 mg/dL (0.8-1.3) 07/23/21 05:45 Estimated GFR > 60 ml/min 07/23/21 05:45 BUN/Creatinine Ratio 26 % 07/23/21 05:45 Glucose 124 mg/dL (75-100) H 07/23/21 05:45 Calcium 9.3 mg/dL (8.4-10.2) 07/23/21 05:45 Ferritin 762.9 ng/mL (30.0-300.0) H 07/20/21 12:19 Total Bilirubin 0.40 mg/dL (0.1-1.2) 07/21/21 03:52 AST 130 units/L (5-40) H 07/21/21 03:52 ALT 99 units/L (7-56) H 07/21/21 03:52 Alkaline Phosphatase 61 units/L (35-129) 07/21/21 03:52 Lactate Dehydrogenase 647 units/L (91-180) H 07/20/21 12:19 C-Reactive Protein 13.60 mg/dL (0.00-1.30) H 07/20/21 12:19 Total Protein 7.2 g/dL (6.3-8.2) 07/21/21 03:52 Albumin 3.1 g/dL (3.9-5) L 07/21/21 03:52 Albumin/Globulin Ratio 0.8 % 07/21/21 03:52 Procalcitonin 0.23 ng/mL (<0.15) 07/20/21 12:19 Coronavirus (PCR) Positive (Negative) A 07/21/21 09:40 Chaudhry/IV: Voiding Method Toilet Active Medications - Current Medications Current Medications: Generic Name Dose Route Start Last Admin Trade Name Freq PRN Reason Stop Dose Admin Acetaminophen 650 mg 07/20/21 14:46 Acetaminophen 325 Mg Tab PO Q4H PRN Pain MILD(1-3)/Fever >100.5/LOPEZ Albuterol 2.5 mg 07/20/21 14:46 Albuterol 2.5 Mg/3 Ml Nebu IH Q4HRT PRN Shortness Of Breath Ascorbic Acid 500 mg 07/20/21 22:00 07/23/21 10:40 Ascorbic Acid 500 Mg Tab PO 500 mg BID TASHIA Administration Aspirin 325 mg 07/22/21 10:00 07/23/21 10:40 Aspirin 325 Mg Tab PO 325 mg QDAY TASHIA Administration Cholecalciferol 1,000 unit 07/21/21 10:00 07/23/21 10:40 Cholecalciferol (Vit D3) 1000 Unit (25 Mcg) Tab PO 1,000 unit QDAY TASHIA Administration Heparin Sodium (Porcine) 5,000 unit 07/20/21 22:00 07/23/21 10:40 Heparin 5,000 Unit/1 Ml Vial SUB-Q 5,000 unit Q12HR TASHIA Administration Hydromorphone HCl 0.5 mg 07/20/21 14:46 Hydromorphone 1 Mg/1 Ml Inj IV Q12H PRN Pain , Severe (7-10) Azithromycin 500 mg in 250 mls @ 250 mls/hr 07/20/21 15:00 07/22/21 14:04 Zithromax/Ns IV 07/23/21 18:59 250 mls/hr Q24H TASHIA Administration Protocol Ceftriaxone Sodium 2 gm in 100 mls @ 200 mls/hr 07/21/21 14:00 07/22/21 14:04 Rocephin/Ns 2 Gm/100 Ml IV 07/25/21 14:29 200 mls/hr Q24H TASHIA Administration Protocol Methylprednisolone Sodium Succinate 40 mg 07/20/21 22:00 07/23/21 05:47 Methylprednisolone Sod Succinate 40 Mg/1 Ml Inj IV 40 mg Q8HR TASHIA Administration Ondansetron HCl 4 mg 07/20/21 14:46 Ondansetron 4 Mg/2 Ml Inj IV Q8H PRN Nausea And Vomiting Oxycodone/Acetaminophen 1 tab 07/20/21 14:46 07/21/21 10:24 Oxycodone /Acetaminophen 5-325mg Tab PO 1 tab Q12H PRN Administration Pain, Moderate (4-6) Sodium Chloride 10 ml 07/20/21 22:00 07/23/21 10:40 Sodium Chloride 0.9% 10 Ml Flush Syringe IV 10 ml BID TASHIA Administration Sodium Chloride 10 ml 07/20/21 14:46 Sodium Chloride 0.9% 10 Ml Flush Syringe IV PRN PRN LINE FLUSH Zinc Sulfate 220 mg 07/20/21 22:00 07/23/21 10:40 Zinc Sulfate 220 Mg Cap PO 220 mg BID TASHIA Administration
[2021-07-23] MEDS: cefTRIAXone/NS 2 GM/100 ML 2 GM/100 ML BAG IV SCH (14:09)
[2021-07-23] MEDS: AZITHROMYCIN/NS 500 MG/250 ML 500 MG/250 ML BAG IV SCH (14:09)
--- NOTE | 2021-07-23 16:28 | Progress Note ---
Assessment and Plan Cultures: SARS CoV2 PCR positive Assessment: 45-year-old male with history of morbid obesity: Admitted on 07/20/2021 secondary to 2-week history of generalized malaise, headaches, cough, nausea, fever, progressive shortness of breath: #Sepsis: With fever, hypoxia, likely secondary to COVID-19. #Severe COVID pneumonia: CXR with bilateral pneumonia. Infllammatory markers elevated. CRP 13.6. Procalcitonin 0.2. D-dimer 919. #Acute hypoxemic respiratory failure: Currently on 2 L. #Elevated LFTs: from COVID, AST 103/ALT 68. #MICHI: from COVID Recommendations: -Continue steroids IV/PO daily for 10 days -No indication for remdesivir, symptoms for over 14 days -Monitor inflammatory markers - ferritin, Ddimer, CRP, LDH -Monitor liver function test on Remdesivir -Continue anticoagulation per System Protocol -Prone positioning as possible -Continue ceftriaxone for 5 days, azithromycin for 3 days All laboratory, cultures and imaging were reviewed. Will follow Anushka Gilliland MD Infectious Diseases Fiction And Nonfiction Author [facility] ([facility]) M [phone] O [phone] Subjective Date of service: 07/23/21 Objective - Constitutional Vitals: Vital Signs Temp Pulse Resp BP Pulse Ox 97.6 F 65 18 114/73 95 07/23/21 11:09 07/23/21 11:09 07/23/21 11:09 07/23/21 11:09 07/23/21 11:09 Temperature -Last 24 Hours Temperature 97.6 F Temperature 97.8 F Temperature 97.9 F - Labs CBC & Chem 7: 07/23/21 05:45 07/23/21 05:45 Labs: Abnormal lab results 07/23/21 07/23/21 Range/Units 05:45 05:45 WBC 12.3 H (4.5-11.0) K/mm3 RBC 5.46 H (3.65-5.03) M/mm3 MCV 82 L (84-94) fl MCH 27 L (28-32) pg BUN 21 H (9-20) mg/dL Glucose 124 H (75-100) mg/dL
--- NOTE | 2021-07-23 16:31 | Progress Note ---
Assessment and Plan Cultures: SARS CoV2 PCR positive Assessment: 45-year-old male with history of morbid obesity: Admitted on 07/20/2021 secondary to 2-week history of generalized malaise, headaches, cough, nausea, fever, progressive shortness of breath: #Sepsis: With fever, hypoxia, likely secondary to COVID-19. Leukocytosis likely due to steroids. #Severe COVID pneumonia: CXR with bilateral pneumonia. Infllammatory markers elevated. CRP 13.6. Procalcitonin 0.2. D-dimer 919. CT with NO PE, moderate lizbeth airspace disease. #Acute hypoxemic respiratory failure: remains on 2L. #Elevated LFTs: from COVID, AST 103/ALT 68. Recommendations: -Consider Home O2 evaluation -Ordered CRP/LFTs -Continue steroids IV/PO daily for 10 days -No indication for remdesivir, symptoms for over 14 days -Continue anticoagulation per System Protocol -Prone positioning as possible -Continue ceftriaxone for 5 days, azithromycin for 3 days, if ready to dc ok to change to doxycycline 100 mg po bid total 5 days will sign off please call me with questions Anushka Gilliland MD Infectious Diseases Crawler Dragline Operator [facility] ([facility] M [phone] O [phone] Subjective Date of service: 07/23/21 Interval history: Now on 2L sat >93% no fever Objective - Exam Narrative Exam: Physical exam deferred to minimize COVID-19 transmission during pandemic. - Constitutional Vitals: Vital Signs Temp Pulse Resp BP Pulse Ox 97.6 F 65 18 114/73 95 07/23/21 11:09 07/23/21 11:09 07/23/21 11:09 07/23/21 11:09 07/23/21 11:09 Temperature -Last 24 Hours Temperature 97.6 F Temperature 97.8 F Temperature 97.9 F - Labs CBC & Chem 7: 07/23/21 05:45 07/23/21 05:45 Labs: Abnormal lab results 07/23/21 07/23/21 Range/Units 05:45 05:45 WBC 12.3 H (4.5-11.0) K/mm3 RBC 5.46 H (3.65-5.03) M/mm3 MCV 82 L (84-94) fl MCH 27 L (28-32) pg BUN 21 H (9-20) mg/dL Glucose 124 H (75-100) mg/dL
[2021-07-23 18:23] LABS: Alanine Aminotransferase 275 units/L (7-56); Bilirubin,Direct < 0.2 mg/dL (0-0.2)
[2021-07-24] MEDS: methylPREDNISolone Sod Succinate 40 MG/1 ML INJ IV SCH ×3 (05:33→23:28)
[2021-07-24 06:34] LABS: Hematocrit 45.4 % (35.5-45.6); Hemoglobin 14.7 gm/dl (11.8-15.2); Mean Corpuscular HGB Conc 33 % (32-34); Mean Corpuscular Volume 82 fl (84-94); Platelet Count 418 K/mm3 (140-440); Red Blood Count 5.54 M/mm3 (3.65-5.03); Red Cell Distribution Width 14.8 % (13.2-15.2)
[2021-07-24 06:41] LABS: BUN/Creatinine Ratio 24; Blood Urea Nitrogen 19 mg/dL (9-20); Calcium 9.4 mg/dL (8.4-10.2); Hemolysis Index 11
[2021-07-24] MEDS: ASCORBIC ACID 500 MG TAB PO SCH ×2 (11:16→23:28)
[2021-07-24] MEDS: CHOLECALCIFEROL (VIT D3) 1000 UNIT (25 mcg) TAB PO SCH (11:16)
[2021-07-24] MEDS: ASPIRIN 325 MG TAB PO SCH (11:16)
[2021-07-24] MEDS: ZINC SULFATE 220 MG CAP PO SCH ×2 (11:16→23:28)
[2021-07-24] MEDS: HEPARIN 5,000 UNIT/1 ML VIAL SUB-Q SCH ×2 (11:17→23:28)
--- NOTE | 2021-07-24 11:38 | Discharge Summary ---
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 Patient reports "I do not feel good". Patient states that he has experienced headache, dry cough, generalized weakness, nausea, headache,fever to 102 F, loss of sense of smell, loss of sense of taste, over the past 2 weeks with worsening symptoms over the same timeframe. Patient states that he received his first dose of the coronavirus vaccine on Friday. Patient transported to [facility] via private vehicle for further care and evaluation of the aforementioned symptoms. The patient was found to have a pulse oximetry of 86% with exertion which is consistent with ac wales hypoxemic respiratory failure. Chest x-ray revealed bilateral pneumonia. Patient admitted to medical floor and initiated on pneumonia protocol as well as coronavirus protocol. Patient denies chest pain, palpitation, skin rash, unilateral leg swelling, calf pain, individual/family history of DVT/PE/bleeding/blood clotting disorders, recent ill contacts. No prior admission for review. No medication listed at time of admission reconciliation. (1) Acute respiratory failure with hypoxia Current Visit: Yes Status: Acute Plan to address problem: Chest x-ray, supplemental oxygen, pulse oximetry, nebulizer therapy, pulmonary toilet. (2) Obesity hypoventilation syndrome Current Visit: Yes Status: Acute Plan to address problem: Balanced diet, increase physical activity at discharge, outpatient pulmonary follow-up for sleep study. (3) Multifocal pneumonia Current Visit: Yes Status: Acute Plan to address problem: Pneumonia protocol: Chest x-ray, CBC, CMP, supplemental oxygen, pulse oximetry, nebulizer therapy, IV antibiotic therapy, blood culture. (4) COVID-19 virus infection Current Visit: Yes Status: Acute Plan to address problem: Coronavirus protocol: Contact precautions, isolation precaution, IV antibiotic therapy, steroid therapy, vitamin C therapy, vitamin D therapy, zinc therapy, prophylactic anticoagulation, prone positioning while in bed (5) DVT prophylaxis Current Visit: Yes Status: Acute Plan to address problem: SCDs bilateral lower extremities while in bed, prophylactic anticoagulation 07/21/21 Patient is 45 yo with cough, shortness of breath. He has bilateral pneumonia, acute resp failure. PUI to r/o Covid. On Rocephin, Azithromycin,solu-medrol 07/22/21 Patient with Covid-19 pneumonia with acute resp failure. Covid-19 positive. On Oxygen at 3 l/min Hyponatremia Elevated d-dimer. Will do CT chest to r/o pulm embolism Cough Shortness of breath Fever Disposition: HOME HEALTH CARE SERVICE Time spent for discharge: 35 MINS Exam - Constitutional Vitals: Temp Pulse Resp BP Pulse Ox 97.7 F 56 L 18 116/70 94 07/24/21 05:55 07/24/21 05:55 07/24/21 05:55 07/24/21 05:55 07/24/21 10:27 Plan Activity: advance as tolerated, fall precautions Diet: low fat Special Instructions: record daily weights, record daily BP diary Follow up with: PRIMARY CAREMD [Primary Care Provider] - 3-5 Days
--- NOTE | 2021-07-24 11:54 | Progress Note ---
Assessment and Plan Assessment and plan: (1) Acute respiratory failure with hypoxia Current Visit: Yes Status: Acute Plan to address problem: Chest x-ray, supplemental oxygen, pulse oximetry, nebulizer therapy, pulmonary toilet. (2) Obesity hypoventilation syndrome Current Visit: Yes Status: Acute Plan to address problem: Balanced diet, increase physical activity at discharge, outpatient pulmonary follow-up for sleep study. (3) Multifocal pneumonia Current Visit: Yes Status: Acute Plan to address problem: Pneumonia protocol: Chest x-ray, CBC, CMP, supplemental oxygen, pulse oximetry, nebulizer therapy, IV antibiotic therapy, blood culture. (4) COVID-19 virus infection Current Visit: Yes Status: Acute Plan to address problem: Coronavirus protocol: Contact precautions, isolation precaution, IV antibiotic therapy, steroid therapy, vitamin C therapy, vitamin D therapy, zinc therapy, prophylactic anticoagulation, prone positioning while in bed (5) DVT prophylaxis Current Visit: Yes Status: Acute Plan to address problem: SCDs bilateral lower extremities while in bed, prophylactic anticoagulation 07/21/21 Patient is 45 yo with cough, shortness of breath. He has bilateral pneumonia, acute resp failure. PUI to r/o Covid. On Rocephin, Azithromycin,solu-medrol 07/22/21 Patient with Covid-19 pneumonia with acute resp failure. Covid-19 positive. On Oxygen at 3 l/min Hyponatremia Elevated d-dimer. Will do CT chest to r/o pulm embolism 07/24: Patient seen and examined, continues supportive care, continue steroid therapy, continue IS. Patient still very hypoxic, continue abx. Will re-evaluate in 2 days History Interval history: Patient seen and examined, still short of breath. Continue supportive care, Patient proned Hospitalist Physical - Physical exam Narrative exam: Gen: Not in acute distress, lying in bed, HEENT:Normocephalic, atraumatic Neck:supple, no JVD Lungs: Bilateral crackles, no wheeze Heart:S1 and S2 reg, no murmurs, rubs or gallop Abd:Soft, non tender, non distended, normal bowel sounds Ext:No edema. no clubbing, no cyanosis Neuro:Awake, alert, oriented X 3, moves all extremities - Constitutional Vitals: Temp Pulse Resp BP Pulse Ox 97.7 F 56 L 18 116/70 94 07/24/21 05:55 07/24/21 05:55 07/24/21 05:55 07/24/21 05:55 07/24/21 10:27 General appearance: Present: obese Results - Labs CBC & Chem 7: 07/24/21 05:44 07/24/21 05:44 Labs: Laboratory Last Values WBC 11.0 K/mm3 (4.5-11.0) 07/24/21 05:44 RBC 5.54 M/mm3 (3.65-5.03) H 07/24/21 05:44 Hgb 14.7 gm/dl (11.8-15.2) 07/24/21 05:44 Hct 45.4 % (35.5-45.6) 07/24/21 05:44 MCV 82 fl (84-94) L 07/24/21 05:44 MCH 27 pg (28-32) L 07/24/21 05:44 MCHC 33 % (32-34) 07/24/21 05:44 RDW 14.8 % (13.2-15.2) 07/24/21 05:44 Plt Count 418 K/mm3 (140-440) 07/24/21 05:44 Lymph % (Auto) 10.3 % (13.4-35.0) L 07/21/21 03:52 [place] % (Auto) 6.2 % (0.0-7.3) 07/21/21 03:52 Eos % (Auto) 0.0 % (0.0-4.3) 07/21/21 03:52 Baso % (Auto) Legal Counsel 07/21/21 03:52 Lymph # (Auto) 0.5 K/mm3 (1.2-5.4) L 07/21/21 03:52 [place] # (Auto) 0.3 K/mm3 (0.0-0.8) 07/21/21 03:52 Eos # (Auto) 0.0 K/mm3 (0.0-0.4) 07/21/21 03:52 Baso # (Auto) 0.0 K/mm3 (0.0-0.1) 07/21/21 03:52 Seg Neutrophils % 83.2 % (40.0-70.0) H 07/21/21 03:52 Seg Neutrophils # 4.2 K/mm3 (1.8-7.7) 07/21/21 03:52 D-Dimer 919.54 ng/mlDDU (0-234) H 07/20/21 12:02 Sodium 138 mmol/L (137-145) 07/24/21 05:44 Potassium 4.8 mmol/L (3.6-5.0) 07/24/21 05:44 Chloride 99.9 mmol/L (98-107) 07/24/21 05:44 Carbon Dioxide 31 mmol/L (22-30) H 07/24/21 05:44 Anion Gap 12 mmol/L 07/24/21 05:44 BUN 19 mg/dL (9-20) 07/24/21 05:44 Creatinine 0.8 mg/dL (0.8-1.3) 07/24/21 05:44 Estimated GFR > 60 ml/min 07/24/21 05:44 BUN/Creatinine Ratio 24 % 07/24/21 05:44 Glucose 115 mg/dL (75-100) H 07/24/21 05:44 Calcium 9.4 mg/dL (8.4-10.2) 07/24/21 05:44 Ferritin 762.9 ng/mL (30.0-300.0) H 07/20/21 12:19 Total Bilirubin 0.50 mg/dL (0.1-1.2) 07/23/21 05:45 Direct Bilirubin < 0.2 mg/dL (0-0.2) 07/23/21 05:45 Indirect Bilirubin 0.3 mg/dL 07/23/21 05:45 AST 252 units/L (5-40) H 07/23/21 05:45 ALT 275 units/L (7-56) H 07/23/21 05:45 Alkaline Phosphatase 76 units/L (35-129) 07/23/21 05:45 Lactate Dehydrogenase 647 units/L (91-180) H 07/20/21 12:19 C-Reactive Protein 4.70 mg/dL (0.00-1.30) H 07/23/21 05:45 Total Protein 7.1 g/dL (6.3-8.2) 07/23/21 05:45 Albumin 3.0 g/dL (3.9-5) L 07/23/21 05:45 Albumin/Globulin Ratio 0.7 % 07/23/21 05:45 Procalcitonin 0.23 ng/mL (<0.15) 07/20/21 12:19 Coronavirus (PCR) Positive (Negative) A 07/21/21 09:40 Chaudhry/IV: Voiding Method Toilet Active Medications - Current Medications Current Medications: Generic Name Dose Route Start Last Admin Trade Name Freq PRN Reason Stop Dose Admin Acetaminophen 650 mg 07/20/21 14:46 Acetaminophen 325 Mg Tab PO Q4H PRN Pain MILD(1-3)/Fever >100.5/LOPEZ Albuterol 2.5 mg 07/20/21 14:46 Albuterol 2.5 Mg/3 Ml Nebu IH Q4HRT PRN Shortness Of Breath Ascorbic Acid 500 mg 07/20/21 22:00 07/24/21 11:16 Ascorbic Acid 500 Mg Tab PO 500 mg BID TASHIA Administration Aspirin 325 mg 07/22/21 10:00 07/24/21 11:16 Aspirin 325 Mg Tab PO 325 mg QDAY TASHIA Administration Cholecalciferol 1,000 unit 07/21/21 10:00 07/24/21 11:16 Cholecalciferol (Vit D3) 1000 Unit (25 Mcg) Tab PO 1,000 unit QDAY TASHIA Administration Heparin Sodium (Porcine) 5,000 unit 07/20/21 22:00 07/24/21 11:17 Heparin 5,000 Unit/1 Ml Vial SUB-Q 5,000 unit Q12HR TASHIA Administration Hydromorphone HCl 0.5 mg 07/20/21 14:46 Hydromorphone 1 Mg/1 Ml Inj IV Q12H PRN Pain , Severe (7-10) Ceftriaxone Sodium 2 gm in 100 mls @ 200 mls/hr 07/21/21 14:00 07/23/21 14:09 Rocephin/Ns 2 Gm/100 Ml IV 07/25/21 14:29 200 mls/hr Q24H TASHIA Administration Protocol Methylprednisolone Sodium Succinate 40 mg 07/20/21 22:00 07/24/21 05:33 Methylprednisolone Sod Succinate 40 Mg/1 Ml Inj IV 40 mg Q8HR TASHIA Administration Ondansetron HCl 4 mg 07/20/21 14:46 Ondansetron 4 Mg/2 Ml Inj IV Q8H PRN Nausea And Vomiting Oxycodone/Acetaminophen 1 tab 07/20/21 14:46 07/21/21 10:24 Oxycodone /Acetaminophen 5-325mg Tab PO 1 tab Q12H PRN Administration Pain, Moderate (4-6) Sodium Chloride 10 ml 07/20/21 22:00 07/24/21 11:18 Sodium Chloride 0.9% 10 Ml Flush Syringe IV 10 ml BID TASHIA Administration Sodium Chloride 10 ml 07/20/21 14:46 Sodium Chloride 0.9% 10 Ml Flush Syringe IV PRN PRN LINE FLUSH Zinc Sulfate 220 mg 07/20/21 22:00 07/24/21 11:16 Zinc Sulfate 220 Mg Cap PO 220 mg BID TASHIA Administration
[2021-07-24] MEDS: cefTRIAXone/NS 2 GM/100 ML 2 GM/100 ML BAG IV SCH (16:36)
[2021-07-25 06:55] LABS: Alanine Aminotransferase 185 units/L (7-56); Albumin 2.9 g/dL (3.9-5); BUN/Creatinine Ratio 21; Blood Urea Nitrogen 17 mg/dL (9-20); Calcium 9.4 mg/dL (8.4-10.2); Hemolysis Index 14
[2021-07-25] MEDS: methylPREDNISolone Sod Succinate 40 MG/1 ML INJ IV SCH (06:56)
[2021-07-25] MEDS: ASCORBIC ACID 500 MG TAB PO SCH ×2 (10:01→22:39)
[2021-07-25] MEDS: ASPIRIN 325 MG TAB PO SCH (10:01)
[2021-07-25] MEDS: HEPARIN 5,000 UNIT/1 ML VIAL SUB-Q SCH ×2 (10:01→22:37)
[2021-07-25] MEDS: ZINC SULFATE 220 MG CAP PO SCH ×2 (10:01→22:40)
[2021-07-25] MEDS: CHOLECALCIFEROL (VIT D3) 1000 UNIT (25 mcg) TAB PO SCH (10:01)
[2021-07-25] MEDS ORDERED: methylPREDNISolone Sod Succinate 40 MG/1 ML INJ IV SCH (12:53)
--- NOTE | 2021-07-25 12:54 | Progress Note ---
Assessment and Plan Assessment and plan: (1) Acute respiratory failure with hypoxia Current Visit: Yes Status: Acute Plan to address problem: Chest x-ray, supplemental oxygen, pulse oximetry, nebulizer therapy, pulmonary toilet. (2) Obesity hypoventilation syndrome Current Visit: Yes Status: Acute Plan to address problem: Balanced diet, increase physical activity at discharge, outpatient pulmonary follow-up for sleep study. (3) Multifocal pneumonia Current Visit: Yes Status: Acute Plan to address problem: Pneumonia protocol: Chest x-ray, CBC, CMP, supplemental oxygen, pulse oximetry, nebulizer therapy, IV antibiotic therapy, blood culture. (4) COVID-19 virus infection Current Visit: Yes Status: Acute Plan to address problem: Coronavirus protocol: Contact precautions, isolation precaution, IV antibiotic therapy, steroid therapy, vitamin C therapy, vitamin D therapy, zinc therapy, prophylactic anticoagulation, prone positioning while in bed (5) DVT prophylaxis Current Visit: Yes Status: Acute Plan to address problem: SCDs bilateral lower extremities while in bed, prophylactic anticoagulation 07/21/21 Patient is 45 yo with cough, shortness of breath. He has bilateral pneumonia, acute resp failure. PUI to r/o Covid. On Rocephin, Azithromycin,solu-medrol 07/22/21 Patient with Covid-19 pneumonia with acute resp failure. Covid-19 positive. On Oxygen at 3 l/min Hyponatremia Elevated d-dimer. Will do CT chest to r/o pulm embolism 07/24: Patient seen and examined, continues supportive care, continue steroid therapy, continue IS. Patient still very hypoxic, continue abx. Will re-evaluate in 2 days 07/25: Patient still significantly hypoxic. I have gone ahead to consult pulmonary to assist with the management will also in addition to steroids give 3 days of Lasix while monitoring renal function. Encourage continued use of incentive spirometer and continue proning. I will also increase steroids to 80 mg every 8 History Interval history: Patient seen and examined, still short of breath. Continue supportive care,encouraged continued proning Hospitalist Physical - Physical exam Narrative exam: Gen: Not in acute distress, lying in bed, still with mild shortness of breath HEENT:Normocephalic, atraumatic Neck:supple, no JVD Lungs: Bilateral crackles, no wheeze Heart:S1 and S2 reg, no murmurs, rubs or gallop Abd:Soft, non tender, non distended, normal bowel sounds Ext:No edema. no clubbing, no cyanosis Neuro:Awake, alert, oriented X 3, moves all extremities - Constitutional Vitals: Temp Pulse Resp BP Pulse Ox 97.2 F L 56 L 18 122/75 96 07/25/21 05:01 07/25/21 05:01 07/25/21 05:01 07/25/21 05:01 07/25/21 10:00 General appearance: Present: obese Results - Labs CBC & Chem 7: 07/24/21 05:44 07/25/21 05:09 Labs: Laboratory Last Values WBC 11.0 K/mm3 (4.5-11.0) 07/24/21 05:44 RBC 5.54 M/mm3 (3.65-5.03) H 07/24/21 05:44 Hgb 14.7 gm/dl (11.8-15.2) 07/24/21 05:44 Hct 45.4 % (35.5-45.6) 07/24/21 05:44 MCV 82 fl (84-94) L 07/24/21 05:44 MCH 27 pg (28-32) L 07/24/21 05:44 MCHC 33 % (32-34) 07/24/21 05:44 RDW 14.8 % (13.2-15.2) 07/24/21 05:44 Plt Count 418 K/mm3 (140-440) 07/24/21 05:44 Lymph % (Auto) 10.3 % (13.4-35.0) L 07/21/21 03:52 [place] % (Auto) 6.2 % (0.0-7.3) 07/21/21 03:52 Eos % (Auto) 0.0 % (0.0-4.3) 07/21/21 03:52 Baso % (Auto) Product Grader 07/21/21 03:52 Lymph # (Auto) 0.5 K/mm3 (1.2-5.4) L 07/21/21 03:52 [place] # (Auto) 0.3 K/mm3 (0.0-0.8) 07/21/21 03:52 Eos # (Auto) 0.0 K/mm3 (0.0-0.4) 07/21/21 03:52 Baso # (Auto) 0.0 K/mm3 (0.0-0.1) 07/21/21 03:52 Seg Neutrophils % 83.2 % (40.0-70.0) H 07/21/21 03:52 Seg Neutrophils # 4.2 K/mm3 (1.8-7.7) 07/21/21 03:52 D-Dimer 919.54 ng/mlDDU (0-234) H 07/20/21 12:02 Sodium 135 mmol/L (137-145) L 07/25/21 05:09 Potassium 5.0 mmol/L (3.6-5.0) 07/25/21 05:09 Chloride 98.7 mmol/L (98-107) 07/25/21 05:09 Carbon Dioxide 26 mmol/L (22-30) 07/25/21 05:09 Anion Gap 15 mmol/L 07/25/21 05:09 BUN 17 mg/dL (9-20) 07/25/21 05:09 Creatinine 0.8 mg/dL (0.8-1.3) 07/25/21 05:09 Estimated GFR > 60 ml/min 07/25/21 05:09 BUN/Creatinine Ratio 21 % 07/25/21 05:09 Glucose 128 mg/dL (75-100) H 07/25/21 05:09 Calcium 9.4 mg/dL (8.4-10.2) 07/25/21 05:09 Ferritin 762.9 ng/mL (30.0-300.0) H 07/20/21 12:19 Total Bilirubin 0.50 mg/dL (0.1-1.2) 07/25/21 05:09 Direct Bilirubin < 0.2 mg/dL (0-0.2) 07/23/21 05:45 Indirect Bilirubin 0.3 mg/dL 07/23/21 05:45 AST 54 units/L (5-40) H 07/25/21 05:09 ALT 185 units/L (7-56) H 07/25/21 05:09 Alkaline Phosphatase 77 units/L (35-129) 07/25/21 05:09 Lactate Dehydrogenase 647 units/L (91-180) H 07/20/21 12:19 C-Reactive Protein 4.70 mg/dL (0.00-1.30) H 07/23/21 05:45 Total Protein 7.2 g/dL (6.3-8.2) 07/25/21 05:09 Albumin 2.9 g/dL (3.9-5) L 07/25/21 05:09 Albumin/Globulin Ratio 0.7 % 07/25/21 05:09 Procalcitonin 0.23 ng/mL (<0.15) 07/20/21 12:19 Coronavirus (PCR) Positive (Negative) A 07/21/21 09:40 Chaudhry/IV: Voiding Method Toilet Active Medications - Current Medications Current Medications: Generic Name Dose Route Start Last Admin Trade Name Freq PRN Reason Stop Dose Admin Acetaminophen 650 mg 07/20/21 14:46 Acetaminophen 325 Mg Tab PO Q4H PRN Pain MILD(1-3)/Fever >100.5/LOPEZ Albuterol 2.5 mg 07/20/21 14:46 Albuterol 2.5 Mg/3 Ml Nebu IH Q4HRT PRN Shortness Of Breath Ascorbic Acid 500 mg 07/20/21 22:00 07/25/21 10:01 Ascorbic Acid 500 Mg Tab PO 500 mg BID TASHIA Administration Aspirin 325 mg 07/22/21 10:00 07/25/21 10:01 Aspirin 325 Mg Tab PO 325 mg QDAY TASHIA Administration Cholecalciferol 1,000 unit 07/21/21 10:00 07/25/21 10:01 Cholecalciferol (Vit D3) 1000 Unit (25 Mcg) Tab PO 1,000 unit QDAY TASHIA Administration Furosemide 40 mg 07/25/21 13:00 Furosemide 40 Mg/4 Ml Inj IV 07/27/21 10:01 QDAY TASHIA Heparin Sodium (Porcine) 5,000 unit 07/20/21 22:00 07/25/21 10:01 Heparin 5,000 Unit/1 Ml Vial SUB-Q 5,000 unit Q12HR TASHIA Administration Hydromorphone HCl 0.5 mg 07/20/21 14:46 Hydromorphone 1 Mg/1 Ml Inj IV Q12H PRN Pain , Severe (7-10) Ceftriaxone Sodium 2 gm in 100 mls @ 200 mls/hr 07/21/21 14:00 07/24/21 16:36 Rocephin/Ns 2 Gm/100 Ml IV 07/25/21 14:29 200 mls/hr Q24H TASHIA Administration Protocol Methylprednisolone Sodium Succinate 40 mg 07/20/21 22:00 07/25/21 06:56 Methylprednisolone Sod Succinate 40 Mg/1 Ml Inj IV 40 mg Q8HR TASHIA Administration Ondansetron HCl 4 mg 07/20/21 14:46 Ondansetron 4 Mg/2 Ml Inj IV Q8H PRN Nausea And Vomiting Oxycodone/Acetaminophen 1 tab 07/20/21 14:46 07/21/21 10:24 Oxycodone /Acetaminophen 5-325mg Tab PO 1 tab Q12H PRN Administration Pain, Moderate (4-6) Sodium Chloride 10 ml 07/20/21 22:00 07/25/21 10:01 Sodium Chloride 0.9% 10 Ml Flush Syringe IV 10 ml BID TASHIA Administration Sodium Chloride 10 ml 07/20/21 14:46 Sodium Chloride 0.9% 10 Ml Flush Syringe IV PRN PRN LINE FLUSH Zinc Sulfate 220 mg 07/20/21 22:00 07/25/21 10:01 Zinc Sulfate 220 Mg Cap PO 220 mg BID TASHIA Administration
[2021-07-25] MEDS: cefTRIAXone/NS 2 GM/100 ML 2 GM/100 ML BAG IV SCH (14:54)
[2021-07-25] MEDS: FUROSEMIDE 40 MG/4 ML INJ IV SCH (14:55)
[2021-07-25] MEDS: methylPREDNISolone Sod Succinate 125 MG/2 ML INJ IV SCH ×2 (14:55→22:38)
[2021-07-26] MEDS: methylPREDNISolone Sod Succinate 125 MG/2 ML INJ IV SCH ×3 (06:53→21:26)
[2021-07-26 07:57] LABS: Hematocrit 46.1 % (35.5-45.6); Hemoglobin 15.2 gm/dl (11.8-15.2); Mean Corpuscular HGB Conc 33 % (32-34); Mean Corpuscular Volume 83 fl (84-94); Platelet Count 554 K/mm3 (140-440); Red Blood Count 5.57 M/mm3 (3.65-5.03); Red Cell Distribution Width 14.6 % (13.2-15.2)
[2021-07-26 08:33] LABS: Alanine Aminotransferase 159 units/L (7-56); BUN/Creatinine Ratio 23; Blood Urea Nitrogen 21 mg/dL (9-20); Calcium 9.7 mg/dL (8.4-10.2); Hemolysis Index 15
[2021-07-26] MEDS: FUROSEMIDE 40 MG/4 ML INJ IV SCH (11:13)
[2021-07-26] MEDS: HEPARIN 5,000 UNIT/1 ML VIAL SUB-Q SCH ×2 (11:18→21:28)
[2021-07-26] MEDS: ASPIRIN 325 MG TAB PO SCH (11:19)
[2021-07-26] MEDS: CHOLECALCIFEROL (VIT D3) 1000 UNIT (25 mcg) TAB PO SCH (11:20)
[2021-07-26] MEDS: ZINC SULFATE 220 MG CAP PO SCH ×2 (11:20→21:26)
[2021-07-26] MEDS: ASCORBIC ACID 500 MG TAB PO SCH ×2 (11:33→21:26)
--- NOTE | 2021-07-26 11:45 | Consultation ---
History of Present Illness Consult date: 07/26/21 Requesting physician: REMEDIOS ARNOLD Reason for consult: other (Acute Hypoxemic Respiratory Failure) History of present illness: PULMONARY/CCM CONSULT NOTE (Full dictation # ) Please see dictated notes for full details Past History Past Medical History: other (See HPI) Past Surgical History: No surgical history, Other (Reviewed) Social history: single. denies: smoking, alcohol abuse, prescription drug abuse Family history: diabetes, hypertension Medications and Allergies Allergies Allergy/AdvReac Type Severity Reaction Status Date / Time No Known Allergies Allergy Verified 07/22/21 04:32 Home Medications Medication Instructions Recorded Confirmed Last Taken Type No Known Home Medications [No 07/21/21 07/21/21 Unknown History Reported Home Medications] Active Meds: Active Medications Acetaminophen (Acetaminophen 325 Mg Tab) 650 mg PO Q4H PRN PRN Reason: Pain MILD(1-3)/Fever >100.5/LOPEZ Albuterol (Albuterol 2.5 Mg/3 Ml Nebu) 2.5 mg IH Q4HRT PRN PRN Reason: Shortness Of Breath Ascorbic Acid (Ascorbic Acid 500 Mg Tab) 500 mg PO BID [facility] Last Admin: 07/26/21 11:33 Dose: 500 mg Documented by: Aspirin (Aspirin 325 Mg Tab) 325 mg PO QDAY [facility] Last Admin: 07/26/21 11:19 Dose: 325 mg Documented by: Cholecalciferol (Cholecalciferol (Vit D3) 1000 Unit (25 Mcg) Tab) 1,000 unit PO QDAY [facility] Last Admin: 07/26/21 11:20 Dose: 1,000 unit Documented by: Furosemide (Furosemide 40 Mg/4 Ml Inj) 40 mg IV QDAY [facility] Stop: 07/27/21 10:01 Last Admin: 07/26/21 11:13 Dose: 40 mg Documented by: Heparin Sodium (Porcine) (Heparin 5,000 Unit/1 Ml Vial) 5,000 unit SUB-Q Q12HR [facility] Last Admin: 07/26/21 11:18 Dose: 5,000 unit Documented by: Hydromorphone HCl (Hydromorphone 1 Mg/1 Ml Inj) 0.5 mg IV Q12H PRN PRN Reason: Pain , Severe (7-10) Methylprednisolone Sodium Succinate (Methylprednisolone Sod Succinate 125 Mg/2 Ml Inj) 80 mg IV Q8HR [facility] Last Admin: 07/26/21 06:53 Dose: 80 mg Documented by: Ondansetron HCl (Ondansetron 4 Mg/2 Ml Inj) 4 mg IV Q8H PRN PRN Reason: Nausea And Vomiting Oxycodone/Acetaminophen (Oxycodone /Acetaminophen 5-325mg Tab) 1 tab PO Q12H PRN PRN Reason: Pain, Moderate (4-6) Last Admin: 07/21/21 10:24 Dose: 1 tab Documented by: Sodium Chloride (Sodium Chloride 0.9% 10 Ml Flush Syringe) 10 ml IV BID [facility] Last Admin: 07/26/21 11:30 Dose: 10 ml Documented by: Sodium Chloride (Sodium Chloride 0.9% 10 Ml Flush Syringe) 10 ml IV PRN PRN PRN Reason: LINE FLUSH Zinc Sulfate (Zinc Sulfate 220 Mg Cap) 220 mg PO BID [facility] Last Admin: 07/26/21 11:20 Dose: 220 mg Documented by: Physical Examination Vital signs: Vital Signs Temp Pulse Resp BP Pulse Ox 102.1 F H 98 H 17 129/63 91 07/20/21 10:57 07/20/21 10:57 07/20/21 10:57 07/20/21 10:57 07/20/21 10:57 Results - Laboratory Findings CBC and BMP: 07/26/21 07:28 07/26/21 07:28 PT/INR, D-dimer D-Dimer 919.54 ng/mlDDU (0-234) H 07/20/21 12:02 Abnormal lab findings: Abnormal Labs 07/20/21 07/20/21 07/20/21 12:02 12:02 12:02 WBC RBC 5.71 H Hgb 15.6 H Hct 46.6 H MCV 82 L MCH 27 L Plt Count Lymph % (Auto) 9.7 L [place] % (Auto) 8.4 H Lymph # (Auto) 0.6 L Seg Neutrophils % 81.7 H D-Dimer 919.54 H Sodium 130 L Chloride 92.6 L Carbon Dioxide BUN Glucose 111 H Ferritin AST 103 H ALT 68 H Lactate Dehydrogenase C-Reactive Protein Albumin 3.5 L Coronavirus (PCR) 07/20/21 07/20/21 07/21/21 12:19 12:19 03:52 WBC RBC 5.41 H Hgb Hct MCV 82 L MCH Plt Count Lymph % (Auto) 10.3 L [place] % (Auto) Lymph # (Auto) 0.5 L Seg Neutrophils % 83.2 H D-Dimer Sodium Chloride Carbon Dioxide BUN Glucose Ferritin 762.9 H AST ALT Lactate Dehydrogenase 647 H C-Reactive Protein 13.60 H Albumin Coronavirus (PCR) 07/21/21 07/21/21 07/22/21 03:52 09:40 05:48 WBC 13.4 H RBC 5.41 H Hgb Hct MCV 81 L MCH 27 L Plt Count Lymph % (Auto) [place] % (Auto) Lymph # (Auto) Seg Neutrophils % D-Dimer Sodium 131 L Chloride 92.7 L Carbon Dioxide BUN 21 H Glucose 142 H Ferritin AST 130 H ALT 99 H Lactate Dehydrogenase C-Reactive Protein Albumin 3.1 L Coronavirus (PCR) Positive A 07/22/21 07/23/21 07/23/21 05:48 05:45 05:45 WBC 12.3 H RBC 5.46 H Hgb Hct MCV 82 L MCH 27 L Plt Count Lymph % (Auto) [place] % (Auto) Lymph # (Auto) Seg Neutrophils % D-Dimer Sodium 133 L Chloride 96.2 L Carbon Dioxide BUN 23 H 21 H Glucose 130 H 124 H Ferritin AST ALT Lactate Dehydrogenase C-Reactive Protein Albumin Coronavirus (PCR) 07/23/21 07/23/21 07/24/21 05:45 05:45 05:44 WBC RBC 5.54 H Hgb Hct MCV 82 L MCH 27 L Plt Count Lymph % (Auto) [place] % (Auto) Lymph # (Auto) Seg Neutrophils % D-Dimer Sodium Chloride Carbon Dioxide BUN Glucose Ferritin AST 252 H ALT 275 H Lactate Dehydrogenase C-Reactive Protein 4.70 H Albumin 3.0 L Coronavirus (PCR) 07/24/21 07/25/21 07/26/21 05:44 05:09 07:28 WBC 14.9 H RBC 5.57 H Hgb Hct 46.1 H MCV 83 L MCH 27 L Plt Count 554 H Lymph % (Auto) [place] % (Auto) Lymph # (Auto) Seg Neutrophils % D-Dimer Sodium 135 L Chloride Carbon Dioxide 31 H BUN Glucose 115 H 128 H Ferritin AST 54 H ALT 185 H Lactate Dehydrogenase C-Reactive Protein Albumin 2.9 L Coronavirus (PCR) 07/26/21 07:28 WBC RBC Hgb Hct MCV MCH Plt Count Lymph % (Auto) [place] % (Auto) Lymph # (Auto) Seg Neutrophils % D-Dimer Sodium Chloride Carbon Dioxide BUN 21 H Glucose 143 H Ferritin AST ALT 159 H Lactate Dehydrogenase C-Reactive Protein Albumin 3.0 L Coronavirus (PCR)
--- NOTE | 2021-07-26 13:56 | Progress Note ---
Assessment and Plan Assessment and plan: (1) Acute respiratory failure with hypoxia Current Visit: Yes Status: Acute Plan to address problem: Chest x-ray, supplemental oxygen, pulse oximetry, nebulizer therapy, pulmonary toilet. (2) Obesity hypoventilation syndrome Current Visit: Yes Status: Acute Plan to address problem: Balanced diet, increase physical activity at discharge, outpatient pulmonary follow-up for sleep study. (3) Multifocal pneumonia Current Visit: Yes Status: Acute Plan to address problem: Pneumonia protocol: Chest x-ray, CBC, CMP, supplemental oxygen, pulse oximetry, nebulizer therapy, IV antibiotic therapy, blood culture. (4) COVID-19 virus infection Current Visit: Yes Status: Acute Plan to address problem: Coronavirus protocol: Contact precautions, isolation precaution, IV antibiotic therapy, steroid therapy, vitamin C therapy, vitamin D therapy, zinc therapy, prophylactic anticoagulation, prone positioning while in bed (5) DVT prophylaxis Current Visit: Yes Status: Acute Plan to address problem: SCDs bilateral lower extremities while in bed, prophylactic anticoagulation 07/21/21 Patient is 45 yo with cough, shortness of breath. He has bilateral pneumonia, acute resp failure. PUI to r/o Covid. On Rocephin, Azithromycin,solu-medrol 07/22/21 Patient with Covid-19 pneumonia with acute resp failure. Covid-19 positive. On Oxygen at 3 l/min Hyponatremia Elevated d-dimer. Will do CT chest to r/o pulm embolism 07/24: Patient seen and examined, continues supportive care, continue steroid therapy, continue IS. Patient still very hypoxic, continue abx. Will re-evaluate in 2 days 07/25: Patient still significantly hypoxic. I have gone ahead to consult pulmonary to assist with the management will also in addition to steroids give 3 days of Lasix while monitoring renal function. Encourage continued use of incentive spirometer and continue proning. I will also increase steroids to 80 mg every 8 07/26: Patient seen and examined reports some improvement, continue lasix in addition to the steroids, re-evaluate in 1-2 days about home medications. Continue prone History Interval history: Patient seen and examined, still short of breath. Continue supportive care,encouraged continued proning Hospitalist Physical - Physical exam Narrative exam: Gen: Not in acute distress, lying in bed, still with mild shortness of breath HEENT:Normocephalic, atraumatic Neck:supple, no JVD Lungs: Bilateral crackles, no wheeze Heart:S1 and S2 reg, no murmurs, rubs or gallop Abd:Soft, non tender, non distended, normal bowel sounds Ext:No edema. no clubbing, no cyanosis Neuro:Awake, alert, oriented X 3, moves all extremities - Constitutional Vitals: Temp Pulse Resp BP Pulse Ox 98.2 F 57 L 20 111/62 93 07/26/21 05:42 07/26/21 05:42 07/26/21 05:42 07/26/21 05:42 07/26/21 12:24 General appearance: Present: obese Results - Labs CBC & Chem 7: 07/26/21 07:28 07/26/21 07:28 Labs: Laboratory Last Values WBC 14.9 K/mm3 (4.5-11.0) H 07/26/21 07:28 RBC 5.57 M/mm3 (3.65-5.03) H 07/26/21 07:28 Hgb 15.2 gm/dl (11.8-15.2) 07/26/21 07:28 Hct 46.1 % (35.5-45.6) H 07/26/21 07:28 MCV 83 fl (84-94) L 07/26/21 07:28 MCH 27 pg (28-32) L 07/26/21 07:28 MCHC 33 % (32-34) 07/26/21 07:28 RDW 14.6 % (13.2-15.2) 07/26/21 07:28 Plt Count 554 K/mm3 (140-440) H 07/26/21 07:28 Lymph % (Auto) 10.3 % (13.4-35.0) L 07/21/21 03:52 [place] % (Auto) 6.2 % (0.0-7.3) 07/21/21 03:52 Eos % (Auto) 0.0 % (0.0-4.3) 07/21/21 03:52 Baso % (Auto) Test Tech 07/21/21 03:52 Lymph # (Auto) 0.5 K/mm3 (1.2-5.4) L 07/21/21 03:52 [place] # (Auto) 0.3 K/mm3 (0.0-0.8) 07/21/21 03:52 Eos # (Auto) 0.0 K/mm3 (0.0-0.4) 07/21/21 03:52 Baso # (Auto) 0.0 K/mm3 (0.0-0.1) 07/21/21 03:52 Seg Neutrophils % 83.2 % (40.0-70.0) H 07/21/21 03:52 Seg Neutrophils # 4.2 K/mm3 (1.8-7.7) 07/21/21 03:52 D-Dimer 919.54 ng/mlDDU (0-234) H 07/20/21 12:02 Sodium 137 mmol/L (137-145) 07/26/21 07:28 Potassium 5.0 mmol/L (3.6-5.0) 07/26/21 07:28 Chloride 99.0 mmol/L (98-107) 07/26/21 07:28 Carbon Dioxide 27 mmol/L (22-30) 07/26/21 07:28 Anion Gap 16 mmol/L 07/26/21 07:28 BUN 21 mg/dL (9-20) H 07/26/21 07:28 Creatinine 0.9 mg/dL (0.8-1.3) 07/26/21 07:28 Estimated GFR > 60 ml/min 07/26/21 07:28 BUN/Creatinine Ratio 23 % 07/26/21 07:28 Glucose 143 mg/dL (75-100) H 07/26/21 07:28 Calcium 9.7 mg/dL (8.4-10.2) 07/26/21 07:28 Ferritin 762.9 ng/mL (30.0-300.0) H 07/20/21 12:19 Total Bilirubin 0.40 mg/dL (0.1-1.2) 07/26/21 07:28 Direct Bilirubin < 0.2 mg/dL (0-0.2) 07/23/21 05:45 Indirect Bilirubin 0.3 mg/dL 07/23/21 05:45 AST 38 units/L (5-40) 07/26/21 07:28 ALT 159 units/L (7-56) H 07/26/21 07:28 Alkaline Phosphatase 79 units/L (35-129) 07/26/21 07:28 Lactate Dehydrogenase 647 units/L (91-180) H 07/20/21 12:19 C-Reactive Protein 4.70 mg/dL (0.00-1.30) H 07/23/21 05:45 Total Protein 7.7 g/dL (6.3-8.2) 07/26/21 07:28 Albumin 3.0 g/dL (3.9-5) L 07/26/21 07:28 Albumin/Globulin Ratio 0.6 % 07/26/21 07:28 Procalcitonin 0.23 ng/mL (<0.15) 07/20/21 12:19 Coronavirus (PCR) Positive (Negative) A 07/21/21 09:40 Chaudhry/IV: Voiding Method Toilet Active Medications - Current Medications Current Medications: Generic Name Dose Route Start Last Admin Trade Name Freq PRN Reason Stop Dose Admin Acetaminophen 650 mg 07/20/21 14:46 Acetaminophen 325 Mg Tab PO Q4H PRN Pain MILD(1-3)/Fever >100.5/LOPEZ Albuterol 2.5 mg 07/20/21 14:46 Albuterol 2.5 Mg/3 Ml Nebu IH Q4HRT PRN Shortness Of Breath Ascorbic Acid 500 mg 07/20/21 22:00 07/26/21 11:33 Ascorbic Acid 500 Mg Tab PO 500 mg BID TASHIA Administration Aspirin 325 mg 07/22/21 10:00 07/26/21 11:19 Aspirin 325 Mg Tab PO 325 mg QDAY TASHIA Administration Cholecalciferol 1,000 unit 07/21/21 10:00 07/26/21 11:20 Cholecalciferol (Vit D3) 1000 Unit (25 Mcg) Tab PO 1,000 unit QDAY TASHIA Administration Furosemide 40 mg 07/25/21 13:00 07/26/21 11:13 Furosemide 40 Mg/4 Ml Inj IV 07/27/21 10:01 40 mg QDAY TASHIA Administration Heparin Sodium (Porcine) 5,000 unit 07/20/21 22:00 07/26/21 11:18 Heparin 5,000 Unit/1 Ml Vial SUB-Q 5,000 unit Q12HR TASHIA Administration Hydromorphone HCl 0.5 mg 07/20/21 14:46 Hydromorphone 1 Mg/1 Ml Inj IV Q12H PRN Pain , Severe (7-10) Methylprednisolone Sodium Succinate 80 mg 07/25/21 14:00 07/26/21 06:53 Methylprednisolone Sod Succinate 125 Mg/2 Ml Inj IV 80 mg Q8HR TASHIA Administration Ondansetron HCl 4 mg 07/20/21 14:46 Ondansetron 4 Mg/2 Ml Inj IV Q8H PRN Nausea And Vomiting Oxycodone/Acetaminophen 1 tab 07/20/21 14:46 07/21/21 10:24 Oxycodone /Acetaminophen 5-325mg Tab PO 1 tab Q12H PRN Administration Pain, Moderate (4-6) Sodium Chloride 10 ml 07/20/21 22:00 07/26/21 11:30 Sodium Chloride 0.9% 10 Ml Flush Syringe IV 10 ml BID TASHIA Administration Sodium Chloride 10 ml 07/20/21 14:46 Sodium Chloride 0.9% 10 Ml Flush Syringe IV PRN PRN LINE FLUSH Zinc Sulfate 220 mg 07/20/21 22:00 07/26/21 11:20 Zinc Sulfate 220 Mg Cap PO 220 mg BID TASHIA Administration Nutrition/Malnutrition Assess - Dietary Evaluation Nutrition/Malnutrition Findings: Nutrition Notes Start: 07/26/21 12:52 Freq: Status: Active Protocol: Document 07/26/21 12:53 JUSTA (Rec: 07/26/21 12:54 JUSTA [id number]) Nutrition Notes Need for Assessment generated from: LOS Initial or Follow up Brief Note Subjective/Other Information Screen for LOS. Pt eating 100% of meals. Nutrition Intervention Revisit per MD consult or patient Sign Off request:
[2021-07-27] MEDS: methylPREDNISolone Sod Succinate 125 MG/2 ML INJ IV SCH ×3 (05:41→21:35)
[2021-07-27] MEDS: ASCORBIC ACID 500 MG TAB PO SCH ×2 (09:31→21:36)
[2021-07-27] MEDS: FUROSEMIDE 40 MG/4 ML INJ IV SCH (09:32)
[2021-07-27] MEDS: CHOLECALCIFEROL (VIT D3) 1000 UNIT (25 mcg) TAB PO SCH (09:32)
[2021-07-27] MEDS: ASPIRIN 325 MG TAB PO SCH (09:32)
[2021-07-27] MEDS: HEPARIN 5,000 UNIT/1 ML VIAL SUB-Q SCH ×2 (09:32→21:41)
[2021-07-27] MEDS: ZINC SULFATE 220 MG CAP PO SCH ×2 (09:34→21:36)
--- NOTE | 2021-07-27 10:10 | Progress Note ---
Assessment and Plan Acute respiratory failure with hypoxia Multifocal pneumonia COVID-19 virus infection -Titrate supplemental oxygen to keep SpO2 88-90% -Home oxygen evaluation on discharge - Remdesivir as per ID/Pulmonary developed protocols (completed) - complete systemic steroids for severe COVID-19 infection-complete dexamethasone -Awake proning with lateral positioning as tolerated - Continue to monitor inflammatory markers per facility protocol - ferritin, Ddimer, CRP - continue anticoagulation per system Protocol based on d-dimer and clinical considerations- VTE prophylaxis dosing - Continue contact and airborne isolation -Complete empiric antibiotics for CAP per ID recommendations -Discharge planning -Outpatient pulmonary follow up post discharge Subjective Date of service: 07/27/21 Principal diagnosis: Acute hypoxic resp failure, COVID pneumonia Interval history: Seen and examined. Vitals, labs, medications, chart and imaging reviewed. Discussed with nursing and respiratory staff. Denies any fever, no chills, no nausea or vomiting. States he is feeling much better. On 2L NC Objective - Exam Narrative Exam: Gen: Not in acute distress, lying in bed on 2L NC HEENT: Normocephalic, atraumatic Neck: Supple, no JVD Lungs: Decreased AE bilaterally, CTA Heart: S1 and S2, RRR, no murmurs, rubs or gallop Abd:Soft, non tender, non distended, normal bowel sounds Ext: No edema. no clubbing, no cyanosis Neuro:Awake, alert, oriented X 3, moves all extremities Vital Signs - 12hr 07/27/21 04:32 Temperature 98.1 F Pulse Rate 72 Respiratory 18 Rate Blood Pressure 106/65 O2 Sat by Pulse 94 Oximetry CBC and BMP: 07/26/21 07:28 07/26/21 07:28 ABG, PT/INR, D-dimer: PT/INR, D-dimer D-Dimer 919.54 ng/mlDDU (0-234) H 07/20/21 12:02 Abnormal lab findings: Abnormal Labs 07/20/21 07/20/21 07/20/21 12:02 12:02 12:02 WBC RBC 5.71 H Hgb 15.6 H Hct 46.6 H MCV 82 L MCH 27 L Plt Count Lymph % (Auto) 9.7 L [place] % (Auto) 8.4 H Lymph # (Auto) 0.6 L Seg Neutrophils % 81.7 H D-Dimer 919.54 H Sodium 130 L Chloride 92.6 L Carbon Dioxide BUN Glucose 111 H Ferritin AST 103 H ALT 68 H Lactate Dehydrogenase C-Reactive Protein Albumin 3.5 L Coronavirus (PCR) 07/20/21 07/20/21 07/21/21 12:19 12:19 03:52 WBC RBC 5.41 H Hgb Hct MCV 82 L MCH Plt Count Lymph % (Auto) 10.3 L [place] % (Auto) Lymph # (Auto) 0.5 L Seg Neutrophils % 83.2 H D-Dimer Sodium Chloride Carbon Dioxide BUN Glucose Ferritin 762.9 H AST ALT Lactate Dehydrogenase 647 H C-Reactive Protein 13.60 H Albumin Coronavirus (PCR) 07/21/21 07/21/21 07/22/21 03:52 09:40 05:48 WBC 13.4 H RBC 5.41 H Hgb Hct MCV 81 L MCH 27 L Plt Count Lymph % (Auto) [place] % (Auto) Lymph # (Auto) Seg Neutrophils % D-Dimer Sodium 131 L Chloride 92.7 L Carbon Dioxide BUN 21 H Glucose 142 H Ferritin AST 130 H ALT 99 H Lactate Dehydrogenase C-Reactive Protein Albumin 3.1 L Coronavirus (PCR) Positive A 07/22/21 07/23/21 07/23/21 05:48 05:45 05:45 WBC 12.3 H RBC 5.46 H Hgb Hct MCV 82 L MCH 27 L Plt Count Lymph % (Auto) [place] % (Auto) Lymph # (Auto) Seg Neutrophils % D-Dimer Sodium 133 L Chloride 96.2 L Carbon Dioxide BUN 23 H 21 H Glucose 130 H 124 H Ferritin AST ALT Lactate Dehydrogenase C-Reactive Protein Albumin Coronavirus (PCR) 07/23/21 07/23/21 07/24/21 05:45 05:45 05:44 WBC RBC 5.54 H Hgb Hct MCV 82 L MCH 27 L Plt Count Lymph % (Auto) [place] % (Auto) Lymph # (Auto) Seg Neutrophils % D-Dimer Sodium Chloride Carbon Dioxide BUN Glucose Ferritin AST 252 H ALT 275 H Lactate Dehydrogenase C-Reactive Protein 4.70 H Albumin 3.0 L Coronavirus (PCR) 07/24/21 07/25/21 07/26/21 05:44 05:09 07:28 WBC 14.9 H RBC 5.57 H Hgb Hct 46.1 H MCV 83 L MCH 27 L Plt Count 554 H Lymph % (Auto) [place] % (Auto) Lymph # (Auto) Seg Neutrophils % D-Dimer Sodium 135 L Chloride Carbon Dioxide 31 H BUN Glucose 115 H 128 H Ferritin AST 54 H ALT 185 H Lactate Dehydrogenase C-Reactive Protein Albumin 2.9 L Coronavirus (PCR) 07/26/21 07:28 WBC RBC Hgb Hct MCV MCH Plt Count Lymph % (Auto) [place] % (Auto) Lymph # (Auto) Seg Neutrophils % D-Dimer Sodium Chloride Carbon Dioxide BUN 21 H Glucose 143 H Ferritin AST ALT 159 H Lactate Dehydrogenase C-Reactive Protein Albumin 3.0 L Coronavirus (PCR)
--- NOTE | 2021-07-27 10:57 | Discharge Summary ---
Providers - Providers Date of Admission: 07/20/21 14:46 Attending physician: REMEDIOS ARNOLD MD 07/21/21 08:33 Consult to Physician [CONS] Routine Comment: Consulting Provider: RIZWANA PATTON Physician Instructions: Reason For Exam: PUI Covid 07/25/21 12:50 Consult to Physician [CONS] Routine Comment: Consulting Provider: ERNESTINA STEVENS Physician Instructions: Reason For Exam: hypoxic respiratory failure secondary to covid Primary care physician: WELT SLASHER Hospitalization Reason for admission: shortness Condition: Stable Hospital course: 45 YO Male with Obesity presents to ED for evaluation. Patient reports "I do not feel good". Patient states that he has experienced headache, dry cough, generalized weakness, nausea, headache,fever to 102 F, loss of sense of smell, loss of sense of taste, over the past 2 weeks with worsening symptoms over the same timeframe. Patient states that he received his first dose of the coronavirus vaccine on Friday. Patient transported to [facility] via private vehicle for further care and evaluation of the aforementioned symptoms. The patient was found to have a pulse oximetry of 86% with exertion which is consistent with acute Hypoxemic respiratory failure. Chest x-ray revealed bilateral pneumonia. Patient admitted to medical floor and initiated on pneumonia protocol as well as coronavirus protocol. Patient denies chest pain, palpitation, skin rash, unilateral leg swelling, calf pain, individual/family history of DVT/PE/bleeding/blood clotting disorders, recent ill contacts. No prior admission for review. No medication listed at time of admission reconciliation. (1) Acute respiratory failure with hypoxia Current Visit: Yes Status: Acute Plan to address problem: Chest x-ray, supplemental oxygen, pulse oximetry, nebulizer therapy, pulmonary toilet. (2) Obesity hypoventilation syndrome Current Visit: Yes Status: Acute Plan to address problem: Balanced diet, increase physical activity at discharge, outpatient pulmonary follow-up for sleep study. (3) Multifocal pneumonia Current Visit: Yes Status: Acute Plan to address problem: Pneumonia protocol: Chest x-ray, CBC, CMP, supplemental oxygen, pulse oximetry, nebulizer therapy, IV antibiotic therapy, blood culture. (4) COVID-19 virus infection Current Visit: Yes Status: Acute Plan to address problem: Coronavirus protocol: Contact precautions, isolation precaution, IV antibiotic therapy, steroid therapy, vitamin C therapy, vitamin D therapy, zinc therapy, prophylactic anticoagulation, prone positioning while in bed 07/21/21 Patient is 45 yo with cough, shortness of breath. He has bilateral pneumonia, acute resp failure. PUI to r/o Covid. On Rocephin, Azithromycin, solu-medrol 07/22/21 Patient with Covid-19 pneumonia with acute Resp failure. Covid-19 positive. On Oxygen at 3 l/min Hyponatremia Elevated d-dimer. Will do CT chest to r/o pulm embolism 07/24: Patient seen and examined, continues supportive care, continue steroid therapy, continue IS. Patient still very hypoxic, continue abx. Will re-evaluate in 2 days 07/25: Patient still significantly hypoxic. I have gone ahead to consult pulmonary to assist with the management will also in addition to steroids give 3 days of Lasix while monitoring renal function. Encourage continued use of incentive spirometer and continue proning. I will also increase steroids to 80 mg every 8 07/26: Patient seen and examined reports some improvement, continue Lasix in addition to the steroids, re-evaluate in 1-2 days about home medications. Continue prone. 07/27: Patient seen and examined, clinically stable, he has had some good improvement, will obtain home o2 eval and possible discharge today if showing improvement. counselling on discharge provided. will recommend social distancing and continue isolation for complete 14 days prior to returning to work. Disposition: HOME HEALTH CARE SERVICE Final Discharge Diagnosis (Prints w/discharge instructions): Acute hypoxic respiratory failure Time spent for discharge: 35 mins Core Measure Documentation - Palliative Care Palliative Care/ Comfort Measures: Not Applicable - Core Measures Any of the following diagnoses?: none Exam - Physical Exam Narrative exam: Gen: Not in acute distress, lying in bed, HEENT: Normocephalic, atraumatic Neck: Supple, no JVD Lungs: Bilateral crackles, no wheeze Heart: S1 and S2 reg, no murmurs, rubs or gallop Abd:Soft, non tender, non distended, normal bowel sounds Ext: No edema. no clubbing, no cyanosis Neuro:Awake, alert, oriented X 3, moves all extremities - Constitutional Vitals: Temp Pulse Resp BP Pulse Ox 98.1 F 81 22 109/68 95 07/27/21 10:42 07/27/21 10:42 07/27/21 10:42 07/27/21 10:42 07/27/21 10:42 Plan Activity: advance as tolerated, fall precautions Diet: low fat Special Instructions: record daily weights, record daily BP diary, physical therapy, occupational therapy Follow up with: PRIMARY CARE, [Primary Care Provider] - 3-5 Days MARU BLANK MD [Staff Physician] - 7 Days Forms: Work/School Release Form Prescriptions: Aspirin 325 mg PO QDAY #30 tablet dexAMETHasone [Dexamethasone] 6 mg PO DAILY #6 tablet Furosemide [Lasix] 20 mg PO QDAY #5 tablet Ascorbic Acid [Vitamin C] 500 mg PO BID #60 tablet Cholecalciferol Vit D3 [Vitamin D3 1,000 UNIT TAB] 1,000 unit PO QDAY #60 tablet Zinc Sulfate 220 mg PO BID #90 capsule
[2021-07-27] MEDS ORDERED: FUROSEMIDE 40 MG/4 ML INJ IV SCH (12:00)
[2021-07-28] MEDS: methylPREDNISolone Sod Succinate 125 MG/2 ML INJ IV SCH ×2 (06:07→13:48)
[2021-07-28] MEDS: ZINC SULFATE 220 MG CAP PO SCH (09:57)
[2021-07-28] MEDS: ASCORBIC ACID 500 MG TAB PO SCH (09:57)
[2021-07-28] MEDS: CHOLECALCIFEROL (VIT D3) 1000 UNIT (25 mcg) TAB PO SCH (09:57)
[2021-07-28] MEDS: HEPARIN 5,000 UNIT/1 ML VIAL SUB-Q SCH (09:57)
[2021-07-28] MEDS: ASPIRIN 325 MG TAB PO SCH (09:57)
[2021-07-28] MEDS ORDERED: FUROSEMIDE 40 MG/4 ML INJ IV SCH (10:00)
--- NOTE | 2021-07-28 10:07 | Discharge Summary ---
Providers - Providers Date of Admission: 07/20/21 14:46 Attending physician: REMEDIOS ARNOLD MD 07/21/21 08:33 Consult to Physician [CONS] Routine Comment: Consulting Provider: RIZWANA PATTON Physician Instructions: Reason For Exam: PUI Covid 07/25/21 12:50 Consult to Physician [CONS] Routine Comment: Consulting Provider: ERNESTINA STEVENS Physician Instructions: Reason For Exam: hypoxic respiratory failure secondary to covid Primary care physician: [employer] Hospitalization Reason for admission: Shortness of Condition: Stable Hospital course: 45 YO Male with Obesity presents to ED for evaluation. Patient reports "I do not feel good". Patient states that he has experienced headache, dry cough, generalized weakness, nausea, headache,fever to 102 F, loss of sense of smell, loss of sense of taste, over the past 2 weeks with worsening symptoms over the same timeframe. Patient states that he received his first dose of the coronavirus vaccine on Friday. Patient transported to [facility] via private vehicle for further care and evaluation of the aforementioned symptoms. The patient was found to have a pulse oximetry of 86% with exertion which is consistent with acute Hypoxemic respiratory failure. Chest x-ray revealed bilateral pneumonia. Patient admitted to medical floor and initiated on pneumonia protocol as well as coronavirus protocol. Patient denies chest pain, palpitation, skin rash, unilateral leg swelling, calf pain, individual/family history of DVT/PE/bleeding/blood clotting disorders, recent ill contacts. No prior admission for review. No medication listed at time of admission reconciliation. (1) Acute respiratory failure with hypoxia Current Visit: Yes Status: Acute Plan to address problem: Chest x-ray, supplemental oxygen, pulse oximetry, nebulizer therapy, pulmonary toilet. (2) Obesity hypoventilation syndrome Current Visit: Yes Status: Acute Plan to address problem: Balanced diet, increase physical activity at discharge, outpatient pulmonary follow-up for sleep study. (3) Multifocal pneumonia Current Visit: Yes Status: Acute Plan to address problem: Pneumonia protocol: Chest x-ray, CBC, CMP, supplemental oxygen, pulse oximetry, nebulizer therapy, IV antibiotic therapy, blood culture. (4) COVID-19 virus infection Current Visit: Yes Status: Acute Plan to address problem: Coronavirus protocol: Contact precautions, isolation precaution, IV antibiotic therapy, steroid therapy, vitamin C therapy, vitamin D therapy, zinc therapy, prophylactic anticoagulation, prone positioning while in bed 07/21/21 Patient is 45 yo with cough, shortness of breath. He has bilateral pneumonia, acute resp failure. PUI to r/o Covid. On Rocephin, Azithromycin, solu-medrol 07/22/21 Patient with Covid-19 pneumonia with acute Resp failure. Covid-19 positive. On Oxygen at 3 l/min Hyponatremia Elevated d-dimer. Will do CT chest to r/o pulm embolism 07/24: Patient seen and examined, continues supportive care, continue steroid therapy, continue IS. Patient still very hypoxic, continue abx. Will re-evaluate in 2 days 07/25: Patient still significantly hypoxic. I have gone ahead to consult pulmonary to assist with the management will also in addition to steroids give 3 days of Lasix while monitoring renal function. Encourage continued use of incentive spirometer and continue proning. I will also increase steroids to 80 mg every 8 07/26: Patient seen and examined reports some improvement, continue Lasix in addition to the steroids, re-evaluate in 1-2 days about home medications. Continue prone. 07/27: Patient seen and examined, clinically stable, he has had some good improvement, will obtain home o2 eval and possible discharge today if showing improvement. counselling on discharge provided. will recommend social distancing and continue isolation for complete 14 days prior to returning to work. 07/28: Patient reports yesterday was on room air, sure why despite his failed home O2 evaluation yesterday. But on examination he was not in acute distress he did ambulate in the room air was satting 86% with exercise went up to 88% and at rest went up to 94% on room air. When put on 2 L with exercise he went up to 96% on 2 L. I recommended that he be discharged with oxygen I told him to monitor his oxygen level continue social distancing he verbalized understanding Disposition: 01 HOME / SELF CARE / HOMELESS Final Discharge Diagnosis (Prints w/discharge instructions): Acute hypoxic respiratory failure secondary to Covid Time spent for discharge: 35-minute Core Measure Documentation - Palliative Care Palliative Care/ Comfort Measures: Not Applicable - Core Measures Any of the following diagnoses?: none Exam - Physical Exam Narrative exam: VITAL SIGNS: Reviewed. GENERAL: The patient appears normally developed, Vital signs as documented. HEAD: No signs of head trauma. EYES: Pupils are equal. Extraocular motions intact. EARS: Hearing grossly intact. MOUTH: Oropharynx is normal. NECK: No adenopathy, no JVD. CHEST: Chest with clear breath sounds bilaterally. No wheezes, rales, or rhonchi. CARDIAC: Regular rate and rhythm. S1 and S2, without murmurs, gallops, or rubs. VASCULAR: No Edema. Peripheral pulses normal and equal in all extremities. ABDOMEN: Soft, non tender and non distended. No rebound or guarding, and no masses palpated. Bowel Sounds normal. MUSCULOSKELETAL: Good range of motion of all major joints. Extremities without clubbing, cyanosis or edema. NEUROLOGIC EXAM: Alert and oriented x 3 No focal sensory or strength deficits. Speech normal. Follows commands. PSYCHIATRIC: Mood normal. SKIN: detail exam as documented in skin assessment - Constitutional Vitals: Temp Pulse Resp BP Pulse Ox 98.1 F 57 L 18 111/67 93 07/28/21 05:07/28/21 05:29 07/28/21 05:29 07/28/21 05:07/28/21 05:29 Plan Activity: advance as tolerated, fall precautions Diet: low fat Special Instructions: record daily weights, record daily BP diary, home oxygen via (nasal cannula @ 2 liters per minute) Plan of Treatment: Strongly recommend continued use of oxygen until oxygen saturation on room air is above 94%. Follow up with: PRIMARY CARE, [Primary Care Provider] - 3-5 Days MARU BLANK MD [Staff Physician] - 7 Days Forms: Work/School Release Form Prescriptions: Aspirin 325 mg PO QDAY #30 tablet dexAMETHasone [Dexamethasone] 6 mg PO DAILY #6 tablet Furosemide [Lasix] 20 mg PO QDAY #5 tablet Ascorbic Acid [Vitamin C] 500 mg PO BID #60 tablet Cholecalciferol Vit D3 [Vitamin D3 1,000 UNIT TAB] 1,000 unit PO QDAY #60 tablet Zinc Sulfate 220 mg PO BID #90 capsule
[2021-07-28 14:12] VITALS: BP 122/85
== END 2021-07-28 16:20 | disposition home or self-care (01) | DRG 871 ==
LOC: ED 10:21 → 3A 14:46
PROVIDERS: ADMIT Internal Medicine; ATTEND Internal Medicine
DX: A41.89 Other specified sepsis (principal); U07.1 COVID-19; J96.01 Acute respiratory failure with hypoxia; J12.82 Pneumonia due to coronavirus disease 2019; E66.2 Morbid (severe) obesity with alveolar hypoventilation; E87.1 Hypo-osmolality and hyponatremia; N17.9 Acute kidney failure, unspecified; Z68.28 Body mass index [BMI] 28.0-28.9, adult; Z83.3 Family history of diabetes mellitus; Z82.49 Family history of ischemic heart disease and other diseases of the circulatory system; R79.89 Other specified abnormal findings of blood chemistry
CPT/HCPCS: 36415; 71046; 71275; 80048; 80053; 80076; 82728; 83615; 84145; 85025; 85027; 85379; 86140; 94640; 94760; G0378; J0456; J0696; J1100; J1644; J1940; J2920; J2930; Q9967; U0003